=== PATIENT | male | born 1955 | race Caucasian/White ===

== ENCOUNTER 2024-03-31 11:45 | Inpatient (IN) | payer OTHER ==
[2024-03-31] MEDS ORDERED: INSULIN REGULAR (HUMAN) 100 UNIT/ML ONE ×2 (12:41→13:50)
[2024-03-31] MEDS ORDERED: ONDANSETRON 4 MG/2 ML VIAL ONE (12:41)
[2024-03-31] MEDS ORDERED: NA CHLORIDE 0.9% 1,000 ML ONE ×2 (12:42→13:11)
[2024-03-31 12:48] LABS: Absolute Basophils 0.1 K/uL (0-0.5); Absolute Lymphocytes (CBC) 0.3 K/uL (0.7-4.9); Absolute Monocytes 1.4 K/uL (0.1-1.3); Absolute Neutrophil 16.9 K/uL (1.8-8.0); Basophils % 0.3 % (0-1.3); Hematocrit 49.4 % (39.6-49.0); Hemoglobin 14.2 g/dL (13.6-17.9); Lymphocytes % 1.7 % (15.3-44.8); MCH 31.3 pg (27.0-35.0); MCHC 28.7 g/dL (32.0-36.0); MCV 109.2 fL (80-100); MPV 8.6 fL (7.6-11.3); Monocytes % 7.3 % (3.3-12.3); Neutrophils % 90.7 % (41.7-73.7); Platelets 385 thou/uL (152-406); RBC Red Blood Cell Count 4.52 M/uL (4.33-5.43)
[2024-03-31 12:52] LABS: Specific Gravity 1.023 (1.005-1.030); Urine Bilirubin NEGATIVE (Negative); Urine Blood Negative (Negative); Urine Clarity Clear (Clear); Urine Color Colorless (Yellow); Urine Glucose 4+ (Over) (Negative); Urine Ketones 2+ (Negative); Urine Microscopic Reflex YN NO UMIC; Urine Nitrite NEGATIVE (Negative); Urine Protein NEGATIVE (Negative); Urine Urobilinogen Normal (Normal)
[2024-03-31 12:57] LABS: PT Prothrombin Time 12.3 SECONDS (9.4-12.5); PTT, Activated Partial Thromb 24.1 SECONDS (24.3-36.9); Protime INR 1.17
[2024-03-31 13:09] LABS: ALT/SGPT 29 U/L (16-61); Albumin 3.5 g/dL (3.4-5.0); Albumin/Globulin Ratio 0.9 (1.1-1.8); Alkaline Phosphatase 156 U/L (45-117); Anion Gap 36.4 mEq/L (5.0-15.0); BUN Blood Urea Nitrogen 94 mg/dL (7-18); Bilirubin Total 0.6 mg/dL (0.2-1.0); Glomerular Filtration Rate 19 ml/min (=/>90); Glucose Level 1742 mg/dL (74-106); Potassium 7.4 mEq/L (3.5-5.1); Protein, Total 7.5 g/dL (6.4-8.2)
[2024-03-31 13:10] LABS: AST/SGOT < 10 U/L (15-37); Bicarbonate < 8 mEq/L (21-32); Sodium Level 103 mEq/L (136-145)
[2024-03-31] MEDS ORDERED: CEFTRIAXONE 2000 MG/VIAL ONE (13:11)
[2024-03-31] MEDS ORDERED: NA CHLORIDE 0.9% 100 ML ONE (13:12)
[2024-03-31 13:31] LABS: Blood Morphology Comment NOTED (NOT SEEN); Macrocytosis 1+; Platelet Estimate ADEQ; White Blood Cell Scan OK (OK)
[2024-03-31] MEDS ORDERED: Calcium Chloride 10% INJ SYR IV ONE (13:42)
--- NOTE | 2024-03-31 13:51 | ER ---
Nurse's Notes [facility] Name: Lázaro Michelle Age: 68 yrs Sex: Male : 1955 Arrival Date: 03/31/2024 Time: 11:45 Bed 23 Private MD: Diagnosis: Other specified diabetes mellitus with ketoacidosis without coma;Diabetes mellitus due to underlying condition with ketoacidosis without coma;Hypo-osmolality and hyponatremia;Hyperkalemia;Sepsis, unspecified organism Presentation: 03/31 12:24 Chief complaint: Spouse and/or significant other states: patient has been weaning ap3 himself off of meathadone for approx 2 months. patients spouse reports the patient has been "acting off" for a week, but it "has been worse since yesterday". Coronavirus screen: At this time, the client does not indicate any symptoms associated with coronavirus-19. Ebola Screen: No symptoms or risks identified at this time. Initial Sepsis Screen: Does the patient meet any 2 criteria? RR > 20 per min. Altered Mental Status. HR > 90 bpm. Does the patient have a suspected source of infection? No. Patient's initial sepsis screen is negative. Risk Assessment: Do you want to hurt yourself or someone else? Patient reports no desire to harm self or others. Onset of symptoms is unknown. 12:24 Method Of Arrival: Wheelchair ap3 12:24 Acuity: MINAL 2 ap3 Triage Assessment: 12:28 General: Appears distressed, Behavior is restless. Neuro: Level of Consciousness is ap3 confused, Oriented to person, Gait is unsteady. Neuro: Reports weakness. Cardiovascular: Patient's skin is warm and dry. Respiratory: Airway is patent Respiratory pattern is tachypnea. Historical: - Allergies: 12:28 No Known Allergies; ap3 - PMHx: 12:28 High Cholesterol; Hypertension; Diabetes mellitus; Chronic back pain; ap3 - Social history:: Smoking status: Patient denies any tobacco usage or history of. Screenin:15 [facility] ED Fall Risk Assessment (Adult) History of falling in the last 3 months, jb4 including since admission No falls in past 3 months (0 pts) Confusion or Disorientation No (0 pts) Intoxicated or Sedated No (0 pts) Impaired Gait Yes (1 pt) Mobility Assist Device Used Yes (1 pt) Altered Elimination Yes (1 pt) Score/Fall Risk Level 3 or more points = High Risk Oriented to surroundings, Maintained a safe environment. 00:15 Abuse screen: Denies threats or abuse. Nutritional screening: No deficits noted. jb4 Tuberculosis screening: No symptoms or risk factors identified. Assessment: 12:15 General: Appears in no apparent distress. uncomfortable, ill, Behavior is calm, jb4 cooperative, appropriate for age. Pain: Denies pain. Neuro: Level of Consciousness is awake, alert, obeys commands, Oriented to person, place, time, situation. Cardiovascular: Patient's skin is warm and dry. Respiratory: Airway is patent Respiratory effort is even, labored, Respiratory pattern is symmetrical, [place]. Derm: Skin is intact, Skin is dry, Skin is pale, Skin temperature is warm. Musculoskeletal: Circulation, motion, and sensation intact. Range of motion: intact in all extremities. 13:15 Reassessment: Patient appears in no apparent distress at this time. Patient and/or jb4 family updated on plan of care and expected duration. Pain level reassessed. Patient is alert, oriented x 3, equal unlabored respirations, skin warm/dry/pink. 14:15 Reassessment: Patient appears in no apparent distress at this time. Patient and/or jb4 family updated on plan of care and expected duration. Pain level reassessed. Patient is alert, oriented x 3, equal unlabored respirations, skin warm/dry/pink. 15:15 Reassessment: Patient appears in no apparent distress at this time. Patient and/or jb4 family updated on plan of care and expected duration. Pain level reassessed. Patient is alert, oriented x 3, equal unlabored respirations, skin warm/dry/pink. 16:18 Reassessment: Pt resting bed eyes closed, respirations are even and unlabored with no jb4 s/s of pain or distress noted. Vital Signs: 12:24 BP 112 / 55; Pulse 103; Resp 33; Temp 97.4(A); Pulse Ox 100% on R/A; Weight 81.65 kg; ap3 Height 5 ft. 8 in. ; 14:30 BP 124 / 83; Pulse 105; Resp 27; Pulse Ox 97% on R/A; jb4 16:00 BP 119 / 76; Pulse 107; Resp 20; Pulse Ox 100% on 2 lpm NC; jb4 12:24 Body Mass Index 27.37 (81.65 kg, 172.72 cm) ap3 ED Course: 11:48 Patient arrived in ED. mr 12:15 Yaw Mac MD is Attending Physician. bo1 12:28 Triage completed. ap3 12:29 Inserted saline lock: 20 gauge in right antecubital area, using aseptic technique. ap3 Blood collected. Flushed with 10 mL NS. 12:29 Client placed on continuous cardiac and pulse oximetry monitoring. NIBP monitoring ap3 applied. waxing machine operator on. Pulse ox on. NIBP on. 12:48 Blood Culture Adult (2) Sent. jb4 12:48 CBC with Diff Sent. jb4 12:48 CMP Sent. jb4 12:48 Lactate w/ 2H reflex if indic. Sent. jb4 12:48 Protime (+inr) Sent. jb4 12:48 Ptt, Activated Sent. jb4 12:48 Urinalysis w/ reflexes Sent. jb4 13:35 Inserted saline lock: 22 gauge in right wrist, using aseptic technique. jb4 13:40 Inserted saline lock: 18 gauge in left forearm, using aseptic technique. jb4 13:49 Kel Casanova is Hospitalizing Provider. bo1 13:58 Glucose Sent. jb4 14:30 One-on-one care X 120 minutes. jb4 14:54 Sukhdev Rincon, RN is Primary Nurse. jb4 16:23 No provider procedures requiring assistance completed. Patient admitted, IV remains in jb4 place. Administered Medications: 12:47 Drug: Ondansetron IVP 4 mg IVP once; over 2 minutes Route: IVP; Site: right antecubital;jb4 12:48 Drug: NS 0.9% IV 1000 ml IV at 1000 ml once; to be given as a bolus over 60 minutes jb4 Route: IV; Rate: 1000 ml; Site: right antecubital; 12:48 Drug: Insulin Regular Human IVP 10 units IVP once {Co-Signature: [email or web address] (Pily Cordova4 RN).} Route: IVP; Site: right antecubital; 13:20 Drug: NS 0.9% IV 1000 ml IV at 1 bolus Per protocol; to be given as a bolus over 60 jb4 minutes Route: IV; Rate: 1 bolus; Site: right antecubital; 13:20 Drug: Sodium Bicarbonate IVP 1 amp IVP once; (50 mL); equals 50 mEq Route: IVP; Site: jb4 right antecubital; 13:40 Drug: Rocephin IV 2 grams IV at bolus once; Given slow IV push per pharmarcy jb4 instructions Route: IV; Rate: bolus; Site: right wrist; 13:47 Drug: Calcium Chloride IVP 1 grams IVP once Route: IVP; Site: left forearm; jb4 13:58 Drug: Insulin Regular Human IVP 10 units IVP once {Co-Signature: kj2 (Zeinab Cortez RN).} Route: IVP; Site: left forearm; 14:04 Drug: Diazepam IVP 10 mg IVP once {Note: instructed to give 5mg, wait 5 minutes, and jb4 give the last 5 mg..} Route: IVP; Site: left forearm; 15:52 Follow up: Response: No adverse reaction; Marked relief of symptoms; RASS: Drowsy (-1); jb4 Pt became very lethargic after 5mg was administered. Provider notified, instructed to hold the last 5mg of ativan. 14:15 Drug: Insulin Drip - (Insulin Regular Human IVP 100 units, NS 0.9% IV 100 ml) IV at ko1 calculated rate continuous; Standard concentration 1unit/ml; Dose for DKA is 0.1 units/kg/hr {Co-Signature: [email or web address] (Sukhdev Rincon RN).} Route: IV; Rate: calculated rate; Site: right wrist; 15:27 Follow up: Rate change 16.2 units/hr [facility] 15:14 Not Given (incorrect orderr): glucagen1 mg IM once jb4 16:05 Drug: Ativan IVP 2 mg IVP once Route: IVP; Site: right antecubital; jb4 17:49 Follow up: Response: No adverse reaction; Marked relief of symptoms jb4 Point of Care Testing: Blood Glucose: 12:29 Blood Glucose: High (>450 mg/dL); ap3 Ranges: Intake: Outcome: 13:51 Decision to Hospitalize by Provider. bo1 17:57 Admitted to ICU accompanied by nurse, accompanied by tech, via stretcher, room 7, with jb4 oxygen, with chart, Report called to LENIN Stuart 17:57 Condition: stable 17:57 Discharge instructions given to family, Instructed on the need for admit, Demonstrated understanding of instructions, 17:58 Patient left the ED. jb4 Signatures: Robinson Akiko, Reg Reg mr Sukhdev Rincon RN RN jb4 Pily Cordova RN RN ap3 Laura Drew RN RN ko1 Yaw Mac MD MD bo1 Pily Cordova RN3 Zeinab Cortez RN kj2 Sukhdev Rincon RN4 Corrections: (The following items were deleted from the chart) 14:19 14:04 Diazepam IVP 5 mg IVP in left forearm; instructed to give 5mg, wait 5 minutes, jb4 and give the last 5 mg jb4 14:33 14:30 Pulse 105bpm; Resp 27bpm; Pulse Ox 97% RA; jb4 jb4 15:53 14:18 Response: No adverse reaction; Marked relief of symptoms; RASS: Drowsy (-1) jb4 jb4
--- NOTE | 2024-03-31 13:51 | EDPHYS ---
Physician Documentation [facility] Name: Lázaro Michelle Age: 68 yrs Sex: Male : 1955 Arrival Date: 03/31/2024 Time: 11:45 Bed 23 Private MD: ED Physician Yaw Mac HPI: 03/31 13:29 This 68 yrs old Male presents to ER via Wheelchair with complaints of Weakness, Shaking.bo1 13:29 Onset: The symptoms/episode began/occurred gradually, 4 day(s) ago. Associated signs bo1 and symptoms: Pertinent positives: weakness, Muscle cramps etc. Shaking all over. Severity of symptoms: At their worst the symptoms were severe this morning. Recent hx of possible diabetes and repeat lab work and discussion appt due today. Pt has been feeling thirsty and drinking "gallons" of water and milk.. Historical: - Allergies: 12:28 No Known Allergies; ap3 - PMHx: 12:28 High Cholesterol; Hypertension; Diabetes mellitus; Chronic back pain; ap3 - Social history:: Smoking status: Patient denies any tobacco usage or history of. ROS: 13:32 Constitutional: Negative for fever or chills bo1 13:32 Constitutional: Positive for weight loss, Negative for poor PO intake, 13:32 Neck: Negative for pain with movement, stiffness, 13:32 Cardiovascular: Negative for chest pain, 13:32 Respiratory: Negative for cough, shortness of breath, 13:32 Abdomen/GI: Negative for abdominal pain, 13:32 Back: Positive for pain at rest, Hx of chronic back pain, 13:32 : Positive for urinary frequency, Negative for urinary symptoms, 13:32 Skin: Negative for rash, 13:32 Neuro: Positive for speech changes, Per family today, 13:32 Endocrine: Positive for polydipsia, weight loss, 13:32 All other systems are negative, Exam: 13:39 Constitutional: This is an awake, alert, and in moderate acute distress. bo1 13:39 Constitutional: The patient appears alert, awake, in obvious distress, moderately distressed, 13:39 Eyes: Exam is negative for acute changes, 13:39 Cardiovascular: Rate: normal, Rhythm: regular, Pulses: no pulse deficits are appreciated, 13:39 ECG was reviewed by the Attending Physician. 13:41 Neck: External neck: is normal, no acute changes, bo1 13:41 Respiratory: mild respiratory distress is noted, Increased rate - 35 rate, 13:41 Abdomen/GI: Inspection: abdomen appears normal, Scaphoid, 13:41 Back: muscle spasm, is appreciated in the left trapezius and right trapezius, 13:41 Musculoskeletal/extremity: Extremities: all appear grossly normal, with no appreciated pain with palpation, no acute changes, 13:41 Skin: Turgor: is poor, Dry mucous membranes, 13:41 Neuro: Orientation: is normal, Mentation: is normal, seizure activity, is not displayed by the patient, Abnormal movements: Muscles are "cramping" R>L. Vital Signs: 12:24 BP 112 / 55; Pulse 103; Resp 33; Temp 97.4(A); Pulse Ox 100% on R/A; Weight 81.65 kg; ap3 Height 5 ft. 8 in. ; 14:30 BP 124 / 83; Pulse 105; Resp 27; Pulse Ox 97% on R/A; jb4 16:00 BP 119 / 76; Pulse 107; Resp 20; Pulse Ox 100% on 2 lpm NC; jb4 12:24 Body Mass Index 27.37 (81.65 kg, 172.72 cm) ap3 MDM: 12:15 Medical Screening Exam initiated bo1 13:43 Data reviewed: vital signs, lab test result(s), EKG, radiologic studies, plain films, bo1 ABG. Consideration of Admission/Observation Patient was admitted/placed on observation. Management of patient was discussed with the following: Hospitalist: Dr Jocelyne GRIGSBY. I considered the following discharge prescriptions or medication management in the emergency department Medications were administered in the Emergency Department. See MAR. Response to treatment: the patient's symptoms have mildly improved after treatment, BP is improved and condition slowly getting better clinically. ED course: Pt with water intoxication after drinking 5 gallons of water in the past 4 days along with 1 gallon of milk appears to be in DKA with low sodium and elevated potassium needing to be in the ICU on an insulin drip. 03/31 12:25 Order name: Blood Culture Adult (2) banner 03/31 12:25 Order name: CBC with Diff; Complete Time: 13:52 banner 03/31 12: Order name: CMP; Complete Time: 13:14 banner 03/31 12:25 Order name: Lactate w/ 2H reflex if indic.; Complete Time: 13:14 jb4 03/31 12:25 Order name: Protime (+inr); Complete Time: 12:58 jb4 03/31 12:25 Order name: Ptt, Activated; Complete Time: 12:58 jb4 03/31 12:28 Order name: ABG bo1 03/31 12:28 Order name: Urinalysis w/ reflexes; Complete Time: 12:58 [facility] 03/31 12:36 Order name: Glucose, Ancillary Testing; Complete Time: 12:58 EDMS 03/31 12:59 Order name: CBC Smear Scan; Complete Time: 13:52 EDMS 03/31 13:11 Order name: Ghost Lactate-NO COLLECT Timer; Complete Time: 15:51 EDMS 03/31 13:48 Order name: Glucose; Complete Time: 15:51 4 03/31 13:59 Order name: Glucose, Ancillary Testing; Complete Time: 15:51 EDMS 03/31 14:25 Order name: Urinalysis w/ reflexes EDMS 03/31 14:25 Order name: Urine Drug Screen; Complete Time: 17:01 EDMS 03/31 14:25 Order name: Basic Metabolic Panel EDMS 03/31 14:25 Order name: Basic Metabolic Panel EDMS 03/31 14:25 Order name: Basic Metabolic Panel EDMS 03/31 14:25 Order name: Basic Metabolic Panel EDMS 03/31 14:25 Order name: Basic Metabolic Panel EDMS 03/31 14:25 Order name: Basic Metabolic Panel EDMS 03/31 14:25 Order name: Basic Metabolic Panel EDMS 03/31 14:25 Order name: Basic Metabolic Panel EDMS 03/31 14:25 Order name: CBC with Automated Diff EDMS 03/31 14:25 Order name: CBC with Automated Diff EDMS 03/31 14:25 Order name: CBC with Automated Diff EDMS 03/31 14:25 Order name: CBC with Automated Diff EDMS 03/31 14:25 Order name: CBC with Automated Diff EDMS 03/31 14:25 Order name: CBC with Automated Diff EDMS 03/31 14:25 Order name: CBC with Automated Diff EDMS 03/31 14:25 Order name: CBC with Automated Diff EDMS 03/31 14:25 Order name: Magnesium EDMS 03/31 14:25 Order name: Magnesium EDMS 03/31 14:25 Order name: Magnesium EDMS 03/31 14:25 Order name: Magnesium EDMS 03/31 14:25 Order name: Magnesium EDMS 03/31 14:25 Order name: Magnesium EDMS 03/31 14:25 Order name: Magnesium EDMS 03/31 14:25 Order name: Magnesium EDMS 03/31 14:25 Order name: Phosphorus EDMS 03/31 14:25 Order name: Phosphorus EDMS 03/31 14:25 Order name: Phosphorus EDMS 03/31 14:25 Order name: Phosphorus EDMS 03/31 14:25 Order name: Phosphorus EDMS 03/31 14:25 Order name: Phosphorus EDMS 03/31 14:25 Order name: Phosphorus EDMS 03/31 14:25 Order name: Phosphorus EDMS 03/31 15:14 Order name: Glucose jb4 03/31 15:19 Order name: Glucose, Ancillary Testing; Complete Time: 15:51 EDMS 03/31 15:51 Order name: Glucose Level; Complete Time: 15:51 EDMS 03/31 15:54 Order name: Lactate Sepsis 2 HR Follow-up; Complete Time: 17:01 EDMS 03/31 16:48 Order name: Glucose, Ancillary Testing; Complete Time: 17:01 EDMS 03/31 17:07 Order name: Basic Metabolic Panel EDMS 03/31 17:55 Order name: Glucose, Ancillary Testing EDMS 03/31 12:25 Order name: EKG; Complete Time: 12:25 jb4 03/31 12:25 Order name: Accucheck; Complete Time: 12:30 4 03/31 12:25 Order name: Cardiac monitoring; Complete Time: 12:30 03/31 12:25 Order name: EKG - Nurse/Tech; Complete Time: 12:48 03/31 12:25 Order name: IV Saline Lock - Large Bore; Complete Time: 12:30 4 03/31 12:25 Order name: Labs collected and sent; Complete Time: 12:48 03/31 12:25 Order name: O2 Per Protocol; Complete Time: 12:30 jb4 03/31 12:25 Order name: O2 Sat Monitoring; Complete Time: 12:30 03/31 12:25 Order name: Vital Signs; Complete Time: 12:30 jb4 EC:39 Rate is 100 beats/min. Rhythm is regular. QRS [place] is Normal. MN interval is normal. bo1 QRS interval is normal. QT interval is normal. No Q waves. T waves are Normal. T waves are Peaked. No ST changes noted. Clinical impression: Normal ECG and T-waves are slightly peaked. Interpreted by me. Reviewed by me. Administered Medications: 12:47 Drug: Ondansetron IVP 4 mg IVP once; over 2 minutes Route: IVP; Site: right antecubital;jb4 12:48 Drug: NS 0.9% IV 1000 ml IV at 1000 ml once; to be given as a bolus over 60 minutes jb4 Route: IV; Rate: 1000 ml; Site: right antecubital; 12:48 Drug: Insulin Regular Human IVP 10 units IVP once {Co-Signature: ap3 (Pily Cordova jb4 RN).} Route: IVP; Site: right antecubital; 13:20 Drug: NS 0.9% IV 1000 ml IV at 1 bolus Per protocol; to be given as a bolus over 60 jb4 minutes Route: IV; Rate: 1 bolus; Site: right antecubital; 13:20 Drug: Sodium Bicarbonate IVP 1 amp IVP once; (50 mL); equals 50 mEq Route: IVP; Site: jb4 right antecubital; 13:40 Drug: Rocephin IV 2 grams IV at bolus once; Given slow IV push per pharmarcy jb4 instructions Route: IV; Rate: bolus; Site: right wrist; 13:47 Drug: Calcium Chloride IVP 1 grams IVP once Route: IVP; Site: left forearm; jb4 13:58 Drug: Insulin Regular Human IVP 10 units IVP once {Co-Signature: kj2 (Zeinab Cortez jb4 RN).} Route: IVP; Site: left forearm; 14:04 Drug: Diazepam IVP 10 mg IVP once {Note: instructed to give 5mg, wait 5 minutes, and jb4 give the last 5 mg..} Route: IVP; Site: left forearm; 15:52 Follow up: Response: No adverse reaction; Marked relief of symptoms; RASS: Drowsy (-1); jb4 Pt became very lethargic after 5mg was administered. Provider notified, instructed to hold the last 5mg of ativan. 14:15 Drug: Insulin Drip - (Insulin Regular Human IVP 100 units, NS 0.9% IV 100 ml) IV at ko1 calculated rate continuous; Standard concentration 1unit/ml; Dose for DKA is 0.1 units/kg/hr {Co-Signature: [email or web address] (Sukhdev Rincon RN).} Route: IV; Rate: calculated rate; Site: right wrist; 15:27 Follow up: Rate change 16.2 units/hr jb4 15:14 Not Given (incorrect orderr): glucagen1 mg IM once jb4 16:05 Drug: Ativan IVP 2 mg IVP once Route: IVP; Site: right antecubital; jb4 17:49 Follow up: Response: No adverse reaction; Marked relief of symptoms jb4 Point of Care Testing: Blood Glucose: 12:29 Blood Glucose: High (>450 mg/dL); ap3 Ranges: Critical Glucose Levels:Adult <50 mg/dl or >400 mg/dl <40 mg/dl or >180 mg/dl Disposition Summary: 03/31/24 13:51 Hospitalization Ordered Notes: Hospitalization Status: Inpatient Admission bo1 Provider: Kel Casanova Location: Intensive Care Unit bo1 Condition: Serious bo1 Problem: new bo1 Symptoms: are unchanged bo1 Bed/Room Type: [place] [address] Room Assignment: 7-(03/31/24 16:08) eb Diagnosis - Other specified diabetes mellitus with ketoacidosis without coma bo1 - 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 Total time: 160 minutes Signatures: Dispatcher [employer] Sukhdev Hutton RN LENIN jb4 Pily Cordova RN RN ap3 Katja Ratliff Kathy, RN RN ko1 Yaw Mac MD MD bo1 Pily Cordova RN3 Zeinab Cortez RN kj2 Sukhdev Rincon RN jb4 Corrections: (The following items were deleted from the chart) 12: 12:25 BLOOD CULTURE*+BA.LAB.BRZ ordered. EDMS EDMS 12: 12:25 CBC+H.LAB.BRZ ordered. EDMS EDMS 12: 12:25 COMPREHENSIVE METABOLIC PANEL+C.LAB.BRZ ordered. EDMS EDMS 12: 12:25 LACTATE+C.LAB.BRZ ordered. EDMS EDMS 12: 12:25 PROTIME (+INR)+COAG.LAB.BRZ ordered. EDMS EDMS 12: 12:25 PTT, ACTIVATED+COAG.LAB.BRZ ordered. EDMS EDMS 12: 12:29 Urinalysis+U.LAB.BRZ ordered. EDMS EDMS 16:08 13:51 bo1 eb
[2024-03-31] MEDS ORDERED: INSULIN REGULAR, HUMAN 100 UNIT in NA CHLORIDE 0.9% 100 ML IV SCH (14:00)
[2024-03-31] MEDS ORDERED: DIAZEPAM 10 MG/2 ML INJ SYRINGE ONE (14:01)
--- NOTE | 2024-03-31 14:51 | P.HP ---
Certification for Inpatient Patient admitted to: Inpatient With expected LOS: >2 Midnights Patient will require the following post-hospital care: None Practitioner: I am a practitioner with admitting privileges, knowledge of patient current condition, hospital course, and medical plan of care. Services: Services provided to patient in accordance with Admission requirements found in Title 42 Section 412.3 of the Code of Federal Regulations Patient History Date of Service: 03/31/24 Reason for admission: Severe DKA History of Present Illness: Lázaro Michelle is a 68 year old male with Pmhx HTN, HLD presents to the ED with chief complaint of weakness, nausea, and shaking. Family reports he saw the doctor on 03/23 for evaluation of elevated glucose but was unable to follow-up on Friday 03/24 due to the weather. Reportedly he had worsening thirst, urination, weakness, nausea, and shaking. Family decided to bring him to the ED today. Laboratory evaluation significant for WBC 18.7, sodium 103, potassium 7.4, chloride 67, bicarb less than 8, anion gap 36.4, BUN 94, creatinine 3.31, GFR 19, serum glucose 1742, lactic acid 7. While in the ED, he was given 2 LNS bolus, calcium gluconate, Rocephin, Valium, Ativan, and sodium bicarb. Lázaro will be admitted to hospitalist service for further evaluation and treatment of severe DKA. Allergies No Known Allergies Allergy (Verified 05/31/15 11:08) Home Medications: Hydrochlorothiazide 1 tab PO DAILY 05/31/15 Lisinopril [Prinivil*] 1 tab PO DAILY 05/31/15 Metoclopramide HCl [Reglan] 1 tab PO QID 05/31/15 Simvastatin 1 tab PO DAILY 05/31/15 Tramadol HCl 1 tab PO TID PRN 05/31/15 levoFLOXacin [Levaquin] 500 mg PO DAILY #14 tab 06/03/15 metroNIDAZOLE [Flagyl*] 500 mg PO Q8H #42 tablet 06/03/15 - Past Medical/Surgical History Diabetic: No -: hypertension, high cholesterol -: HAND SURGERY, APPENDECTOMY - Social History Smoking Status: Never smoker Alcohol use: No CD- Drugs: No Caffeine use: No Review of Systems Other: per HPI Physical Examination - Physical Exam General: Other (Sleeping s/p valium) HEENT: Atraumatic, Normocephalic, PERRLA Neck: Supple, 2+ carotid pulse no bruit Respiratory: Clear to auscultation bilaterally, Normal air movement Cardiovascular: Normal pulses, Regular rate/rhythm, Normal S1 S2 Capillary refill: <2 Seconds Gastrointestinal: Soft and benign, Non-distended Musculoskeletal: Other (Right arm spasms) Integumentary: No rashes Neurological: Other (Right arm spasms) - Studies Laboratory Data (last 24 hrs) 03/31/24 03/31/24 03/31/24 14:00 13:55 12:30 WBC Hgb Hct Plt Count PT 12.3 INR 1.17 APTT 24.1 L Sodium Cancelled Potassium Cancelled BUN Cancelled Creatinine Cancelled Glucose Cancelled 1514 H* Total Bilirubin AST ALT Alkaline Phosphatase 03/31/24 03/31/24 12:30 12:30 WBC 18.70 H Hgb 14.2 Hct 49.4 H Plt Count 385 PT INR APTT Sodium 103 L* Potassium 7.4 H* BUN 94 H Creatinine 3.31 H Glucose 1742 H* Total Bilirubin 0.6 AST < 10 L ALT 29 Alkaline Phosphatase 156 H Assessment and Plan - Plan Assessment and Plan Sepsis of unspecified organism Diabetes mellitus with severe DKA Severe dehydration 2/2 acidosis psuedohyponatremia 2/2 dehydration Hyperkalemia 2/2 acidosis Right arm spasm -admit to ICU -WBC 18.7, sodium 103, potassium 7.4, chloride 67, bicarb < 8, anion gap 36.4, , serum glucose 1742, LA 7 -agressive IVF, 2L given in the ED, NS per nephrology -Desmopressin -insulin gtt, Q1H glucose checks -BMP Q4H -Consult Nephrology and Neurology BOBBY with Uremia -BUN/creatinine 94/3.31, GFR 19 -IVF as above HTN -continue home medications when appropriate DVT ppx Full code LOS 3-4 days Discharge Plan: Home Plan to discharge in: 72 Hours - Advance Directives Does patient have a Living Will: No Does patient have a Durable POA for Healthcare: No
[2024-03-31] MEDS: SOD POLYSTYREN SUL 15 GM/60 ML UCUP PO ONE (15:30)
[2024-03-31] MEDS: NACHLORIDE 0.45% 1,000 ML with NA BICARB 8.4% 100 MEQ IV SCH (15:30)
[2024-03-31] MEDS ORDERED: LORazepam 2 MG/ML VIAL ONE (15:56)
[2024-03-31 16:29] LABS: Barbiturates NEGATIVE (NEGATIVE); Benzodiazepines NEGATIVE (NEGATIVE); Cocaine NEGATIVE (NEGATIVE); METHAMPHETAM NEGATIVE (NEGATIVE); Methadone POSITIVE (NEGATIVE); Opiates NEGATIVE (NEGATIVE); Phencyclidine NEGATIVE (NEGATIVE); THC Cannibis NEGATIVE (NEGATIVE)
[2024-03-31] MEDS ORDERED: LORazepam 2 MG/ML VIAL IV PRN (16:47)
[2024-03-31 17:05] LABS: Anion Gap 20.5 mEq/L (5.0-15.0); Potassium 5.5 mEq/L (3.5-5.1)
[2024-03-31] MEDS: Ringers Lactate 1,000 ML IV SCH (17:34)
[2024-03-31 17:49] LABS: Arterial Blood Carboxyhemoglob 0.4 % (0-1.5); Blood Gas Oxyhemoglobin 93.9 % (94-97); Blood Gas THB 14.2 g/dl (12-18); Blood O2 Saturation 96.2 % (92-98.5)
[2024-03-31] MEDS: INSULIN REGULAR, HUMAN 100 UNIT in NA CHLORIDE 0.9% 100 ML IV SCH (18:18)
--- NOTE | 2024-03-31 18:34 | P.CNS ---
Date of Consult: 03/31/24 Reason for Consult: Hyponatremia, hyperkalemia, BOBBY Requesting Physician: Joanne Daley Chief Complaint: Severe DKA History of Present Illness: Pls note history obtained through chart review and information provide by pt's as he is currently obtunded. Pt has a hx HTN on several agents, NIDDM on Metformin monotherapy with A1c rising from 7.6-9.4% in the past to 11% on the latest, chronic pain on Methadone and Tramadol under the care of Dr. Ivory who was in his USOH until yesterday and even this AM reports pt was mostly alert and conversive. Pt brought in by family due to weakness, some involuntary jerking of UE and head reported and for which it appears pt received Ativan and Valium in the ER. Pt was found to be severely hyperglycemia, acidotic and with renal failure, hyponatremia and hyperkalemia for which renal service has been consulted. He is seen in the ICU currently on IVF and insulin drip. He has produced > 600 cc since admission to the unit. Allergies No Known Allergies Allergy (Verified 05/31/15 11:08) Home Medications: Hydrochlorothiazide 1 tab PO DAILY 05/31/15 Lisinopril [Prinivil*] 1 tab PO DAILY 05/31/15 Metoclopramide HCl [Reglan] 1 tab PO QID 05/31/15 Simvastatin 1 tab PO DAILY 05/31/15 Tramadol HCl 1 tab PO TID PRN 05/31/15 levoFLOXacin [Levaquin] 500 mg PO DAILY #14 tab 06/03/15 metroNIDAZOLE [Flagyl*] 500 mg PO Q8H #42 tablet 06/03/15 - Past Medical/Surgical History Diabetic: No -: hypertension, high cholesterol -: HAND SURGERY, APPENDECTOMY - Social History Smoking Status: Unknown if ever smoked Alcohol use: No CD- Drugs: No Caffeine use: No Review of Systems is unable to be obtained Physical Examination Temp Pulse Resp BP Pulse Ox 98.6 F 111 H 18 105/77 96 03/31/24 17:30 03/31/24 17:30 03/31/24 17:30 03/31/24 17:30 03/31/24 17:30 General: Other (Obtunded, NAD) HEENT: Atraumatic, Normocephalic Neck: Other (no dystonic movements noted) Respiratory: Clear to auscultation bilaterally, Normal air movement Cardiovascular: No edema, Other (tachy, regular) Gastrointestinal: Soft and benign, Non-distended, No tenderness Musculoskeletal: No swelling, No contractures, No warmth Integumentary: No rashes Neurological: Other (Obtunded, sleeping, does not open eyes to physical stimuli, no tremors or myoclonus noted) Laboratory Data (last 24 hrs) 03/31/24 03/31/24 03/31/24 14:00 13:55 12:30 WBC Hgb Hct Plt Count PT 12.3 INR 1.17 APTT 24.1 L Sodium Cancelled Potassium Cancelled BUN Cancelled Creatinine Cancelled Glucose Cancelled 1514 H* Total Bilirubin AST ALT Alkaline Phosphatase 03/31/24 03/31/24 12:30 12:30 WBC 18.70 H Hgb 14.2 Hct 49.4 H Plt Count 385 PT INR APTT Sodium 103 L* Potassium 7.4 H* BUN 94 H Creatinine 3.31 H Glucose 1742 H* Total Bilirubin 0.6 AST < 10 L ALT 29 Alkaline Phosphatase 156 H Conclusions/Impression: A/P) 1. Stage II BOBBY in the setting of pre-renal azotemia, vol depletion, relative hypotension, concurrent ACEi/diuretic use. Non oliguric, Cr level lower on repeat testing post initial volume admin but will need to cont to monitor closely. 2. Hold all offending meds, anti hypertensives/ACEi, Metformin, other 3. Acute hypotonic (if initial labs are to be believed) hyponatremia in the setting of hyperglycemia, hypovolemia, other although repeat labs with sig higher serum osm in the setting of higher Na levels and with elevated BUN/glucose. Pt at risk for ODS with rapid rise in Na levels with vol repletion given his initial vol contracted/depleted state. Will need to switch to hypotonic IVF, will switch to 1/2 NS, will administer Desmopressin 2 mcg IV once to prevent rapid suppression of osmotically triggered ADH and Na correction. Will check Na levels q2-4h. 4. Hyperkalemia in the setting of BOBBY, DKA, acidosis -K level should cont to improve with intra cellular shifting with insulin, do not dose any further cation exchangers 5. Monitor hourly UOP closely via external or indwelling catheter 6. Metab acidosis with AG -trend AG and bicarb deficit closely, avoid any bicarb pushes given risk for rebound alkalosis. 7. AMS, multifactorial. Possibly myoclonic jerks or partial seizures on presentation. In the setting of above, but with pt's chronic opiate intake with metab that are excreted in urine and with his presentation and current obtunded state, recommend Neuro eval. Dr. De La Cruz is hand stone polisher for the group after hours today and this weekend. Pls call us directly for any significant shifts in Na levels. Rest of DKA and ICU management per IM team Alonso Rendon MD, GARY
[2024-03-31] MEDS: NACHLORIDE 0.45% 1,000 ML IV SCH ×3 (18:41→21:15)
[2024-03-31] MEDS: DESMOPRESSIN 4 MCG/ML AMP IV ONE (18:46)
[2024-03-31 20:39] LABS: Anion Gap 15.8 mEq/L (5.0-15.0); Potassium 4.8 mEq/L (3.5-5.1)
[2024-03-31] MEDS: D5 0.45 NS 1,000 ML IV SCH (22:34)
[2024-03-31 23:39] LABS: Anion Gap 17.1 mEq/L (5.0-15.0); Potassium 5.1 mEq/L (3.5-5.1)
[2024-04-01 01:41] LABS: Arterial Blood Carboxyhemoglob 0.6 % (0-1.5); Blood Gas Oxyhemoglobin 95.7 % (94-97)
[2024-04-01 01:42] LABS: Blood Gas THB 15.5 g/dl (12-18)
--- NOTE | 2024-04-01 02:01 | P.PN ---
Date of Service: 04/01/24 I was called to see the patient is altered mental status is not responding CT scan of the head has been performed report is awaiting patient had rapid correction of hyponatremia seen by nephrology desmopressin given started on quarter normal saline serial sodiums have been ordered currently patient is unresponsive vital signs are stable arterial blood gases satisfactory patient is acidosis appears to have been corrected he did receive lorazepam and diazepam today his renal function is improving
--- NOTE | 2024-04-01 03:37 | RAD REPORT ---
EXAM: CT Head Without Intravenous Contrast CLINICAL HISTORY: The patient is 68 years old and is Male; AMS TECHNIQUE: Axial computed tomography images of the head/brain without intravenous contrast. Sagit juju and coronal reformatted images were created and reviewed. This CT exam was performed using one or more of the following dose reduction techniques: automated exposure control, adjustment of t he mA and/or kV according to patient size, and/or use of iterative reconstruction technique. COMPARISON: No relevant prior studies available. FINDINGS: Brain: Mild nonspecific white matter changes likely related to chronic microvascular ischemic dis ease. No hemorrhage. Ventricles: Unremarkable. No ventriculomegaly. Bones/joints: Unremarkable. No acute fracture. Soft tissues: Unremarkable. Sinuses: Unremarkable as visualized. Mastoid air cells: Unremarkable as visualized. No mastoid effusion. IMPRESSION: No acute intracranial abnormality. Electronically signed by: Tj Bertrand MD 04/01/2024 03:32 AM [facility] 8 Due to temporary technical issues with the [employer] reporting system, reports are being jose miguel d by the in-house radiologist without review as a courtesy to ensure prompt reporting the interpreting radiologist is fully responsible for the content of the report. Transcribed Date/Time: 04/01/2024 3:37 AM
[2024-04-01 04:24] LABS: Absolute Lymphocytes (CBC) 0.7 K/uL (0.7-4.9); Absolute Monocytes 1.5 K/uL (0.1-1.3); Absolute Neutrophil 23.3 K/uL (1.8-8.0); Basophils % 0.2 % (0-1.3); Hematocrit 43.4 % (39.6-49.0); Hemoglobin 14.7 g/dL (13.6-17.9); Lymphocytes % 2.9 % (15.3-44.8); MCH 30.5 pg (27.0-35.0); MCHC 33.9 g/dL (32.0-36.0); MCV 90.1 fL (80-100); MPV 7.8 fL (7.6-11.3); Monocytes % 5.8 % (3.3-12.3); Neutrophils % 91.1 % (41.7-73.7); Platelets 338 thou/uL (152-406); RBC Red Blood Cell Count 4.82 M/uL (4.33-5.43); Red Cell Distribution Width 12.8 % (12.1-15.2)
[2024-04-01 04:39] LABS: Anion Gap 14.6 mEq/L (5.0-15.0); Magnesium 2.1 mg/dL (1.6-2.4); Phosphorus 3.3 mg/dL (2.5-4.9); Potassium 4.6 mEq/L (3.5-5.1)
[2024-04-01 05:05] LABS: Band Neutrophils 14 % (0-1); Differential Total Cells Count 100; Lymphocytes 1 % (15-42); Monocytes 7 % (0-10); Segmented Neutrophils 78 % (40-80)
[2024-04-01 05:07] LABS: Blood Morphology Comment NOT SEEN (NOT SEEN); Platelet Estimate ADEQ
[2024-04-01] MEDS ORDERED: VANCOMYCIN 1 GM in NA CHLORIDE 0.9% 250 ML IVPB SCH (07:00)
[2024-04-01] MEDS: VANCOMYCIN 1.25 GM in NA CHLORIDE 0.9% 250 ML IVPB SCH (07:55)
[2024-04-01 08:00] LABS: Anion Gap 13.8 mEq/L (5.0-15.0); Potassium 4.8 mEq/L (3.5-5.1)
--- NOTE | 2024-04-01 14:46 | PN ---
Date of Progress Note: 04/01/2024 Subjective: Patient was seen and examined in the ICU. He seems to be waking up somewhat and seems t o be opening his eyes spontaneously and responding to his . He is able to talk, but noncoherent. Physical Examination: Vital Signs: At this time are showing temperature 97.4, pulse rate of 116, respiratory rate of 21, a nd blood pressure 171/106. General: He appears mildly agitated. HEENT: Atraumatic head. Lungs: Clear to auscultation. Abdomen: Soft and nontender. Extremities: No evidence of edema. Abdomen: Soft and nontender. No organomegaly was noted. Laboratory Data: From this morning is showing sodium improving to 135, potassium of 4.8, chloride of 105, bicarb of 21, BUN of 77, and creatinine of 1.68, which is significantly improved from 3.3 at th e time of admission. CBC showing a WBC count of 25,000, hemoglobin of 14.7, hematocrit of 43.4, and platelet count of 338. Current Medications: Include cefepime 2 g every 12 hours, desmopressin 1 time dose was given yesterd ay. He is getting Novolin regular insulin drip. He is on D5 half NS at 100 cc an hour and vancomyci n every 36 hours. Impression: 1.Acute renal failure secondary to acute tubular necrosis from ongoing dehydration from diabetic ket oacidosis. 2.Severe hyponatremia secondary to severe volume depletion from ongoing diabetic ketoacidosis. The patient's sodium had initially corrected rapidly, but since then it has been staying relatively stabl e. At this time, I will continue with the half-normal saline and monitor his sodium levels closely a nd follow up. Mental status dash, he seems to be improving. Most likely, his altered mental status was related to metabolic encephalopathy from getting excessive sedation. We will continue to monitor his mental status closely. 3.Hyperosmotic nonketotic state from uncontrolled diabetes. The patient is currently on insulin per protocol. Continue to watch, monitor his blood sugars, and follow up on the protocol. 4.Leukocytosis. The patient remains on broad-spectrum antibiotics, at this time. Blood cultures ar e currently pending. Continue to follow up closely. VV/MODL Voice ID: [id number] Report ID: [id number]
[2024-04-01 15:13] LABS: Anion Gap 8.4 mEq/L (5.0-15.0); Potassium 4.4 mEq/L (3.5-5.1)
[2024-04-01] MEDS ORDERED: LISINOPRIL 40 MG PO SCH (15:29)
--- NOTE | 2024-04-01 16:39 | P.PN ---
Date of Service: 04/01/24 Subjective Sleeping this a.m. WBC increased to 25 ABG improved overnight Sodium improved with careful IV fluid changes overnight Kidney function improving creatinine 1.68 Serum glucose improved to 213 Anion gap closed at 3 AM Lactic acid cleared arm spasms resolved OVN: nurse reports patient in obtunded state s/p valium and ativan given in the ED several hours prior to moving to ICU, CT head reports no acute intracranial abnormality. ROS 10 point ROS as noted above, otherwise negative Physical Exam General: Sleeping, awakens easily, no acute distress HEENT: Atraumatic, Normocephalic, PERRLA Neck: Supple, 2+ carotid pulse no bruit Respiratory: Clear to auscultation bilaterally, Normal air movement Cardiovascular: Normal pulses, mild tachycardia, Normal S1 S2 Capillary refill: <2 Seconds Gastrointestinal: Soft and benign, Non-distended Musculoskeletal: Other (Right arm spasms) Integumentary: No rashes Neurological: Other (Right arm spasms) Vitals Reviewed Problem list Sepsis of unspecified organism Diabetes mellitus with severe DKA Severe dehydration 2/2 acidosis psuedohyponatremia 2/2 dehydration Hyperkalemia 2/2 acidosis Right arm spasm BOBBY with Uremia HTN Assessment and Plan Sepsis of unspecified organism Diabetes mellitus with severe DKA Severe dehydration 2/2 acidosis psuedohyponatremia 2/2 dehydration Hyperkalemia 2/2 acidosis Right arm spasm -admit to ICU -Initial labs WBC 18.7, sodium 103, potassium 7.4, chloride 67, bicarb < 8, anion gap 36.4, , serum glucose 1742, LA 7 -Sodium 135, potassium 4.8, serum glucose 213, WBC 25, lactic acid 1 serum glucose 213 -agressive IVF, 2L given in the ED, NS per nephrology -White blood cells increased to 25 -Started vancomycin/cefepime (04/01) -Initial ABG-(pH 7.13, pCO2 70.5, pO2 125, HCO3 5.5) repeat ABG-(pH 7.33, pCO2 43.2, pO2 139, HCO3 22.3) -Desmopressin per nephrology -insulin gtt, Q1H glucose checks -BMP Q4H -Consult Nephrology and Neurology -Blood cultures no growth to date -Will start CLD BOBBY with Uremia -BUN/creatinine 77/1.68, GFR 44 -IVF as above HTN -continue home medications when appropriate DVT ppx Full code LOS 3-4 days Discharge Plan: Home Plan to discharge in: 72 Hours <Joanne Daley - Last Filed: 04/01/24 16:44> Patient seen and examined with Ms. Daley. Patient is less responsive, however mental status has improved compared to yesterday. Continue DKA protocol with insulin drip. Nephrology is assisting with fluid management to prevent further serum sodium overcorrection. Neurochecks. He has leukocytosis. Continue empiric cefepime and vancomycin. Follow blood cultures. <gary jin - Last Filed: 04/02/24 19:43>
[2024-04-01] MEDS: CEFEPIME 2 GM in NA CHLORIDE 0.9% 100 ML IV SCH (19:39)
[2024-04-01] MEDS: D5 0.9 NS 1,000 ML IV SCH (19:39)
[2024-04-01] MEDS: HYDRALAZINE HCL 20 MG/ML VIAL IV PRN (20:36)
[2024-04-01] MEDS: ACETAMINOPHEN 325 MG TABLET PO PRN (21:00)
[2024-04-01 21:38] VITALS: O2SAT 97
[2024-04-01 22:50] LABS: Anion Gap 12.9 mEq/L (5.0-15.0)
[2024-04-01 23:04] LABS: Potassium 4.9 mEq/L (3.5-5.1)
[2024-04-01] MEDS: MORPHINE 2 MG/ML SYR IV PRN (23:05)
[2024-04-02] MEDS: LABETALOL 20 MG/4ML SYRINGE IV PRN (00:05)
[2024-04-02 01:51] LABS: Specific Gravity 1.025 (1.005-1.030); Sqamous Epithelial <5 /HPF (None Seen); Urine Bacteria None Seen /HPF (<20); Urine Bilirubin NEGATIVE (Negative); Urine Blood 1+ (Negative); Urine Clarity Extremely Turbid (Clear); Urine Color Light-Yellow (Yellow); Urine Crystals Unidentified Many /HPF (None Seen); Urine Culture Reflex Order NOT NEEDED; Urine Glucose 4+ (Over) (Negative); Urine Ketones 2+ (Negative); Urine Microscopic Reflex YN ORDER UMIC; Urine Mucus Slight /HPF (None Seen); Urine Nitrite NEGATIVE (Negative); Urine Protein TRACE (Negative); Urine Urobilinogen Normal (Normal); Urine WBC None Seen /HPF (<5); Urine pH 5.5 (5.0-7.0)
[2024-04-02] MEDS: MORPHINE 2 MG/ML SYR IV ONE (02:16)
--- NOTE | 2024-04-02 05:39 | P.PN ---
Date of Service: 04/02/24 Patient with repeated groaning and moaning, received multiple doses of morphine. Given prior lactic acidemia and unexplained abdominal pain, will obtain CT of the abdomen to rule out perforation or bowel ischemia
[2024-04-02 05:50] LABS: Absolute Lymphocytes (CBC) 0.5 K/uL (0.7-4.9); Absolute Neutrophil 21.8 K/uL (1.8-8.0); Basophils % 0.2 % (0-1.3); Hematocrit 42.4 % (39.6-49.0); Hemoglobin 14.6 g/dL (13.6-17.9); MCH 31.4 pg (27.0-35.0); MCHC 34.3 g/dL (32.0-36.0); MCV 91.6 fL (80-100); MPV 8.1 fL (7.6-11.3); Monocytes % 4.2 % (3.3-12.3); Neutrophils % 93.6 % (41.7-73.7); Platelets 244 thou/uL (152-406); RBC Red Blood Cell Count 4.64 M/uL (4.33-5.43); Red Cell Distribution Width 13.3 % (12.1-15.2)
[2024-04-02 06:12] LABS: Anion Gap 11.9 mEq/L (5.0-15.0); Magnesium 2.2 mg/dL (1.6-2.4); Potassium 3.9 mEq/L (3.5-5.1)
--- NOTE | 2024-04-02 07:01 | RAD REPORT ---
EXAMINATION: CT ABDOMEN AND PELVIS WITHOUT CONTRAST CLINICAL INDICATION: Male, 68 years old.unexplained abdominal pain , r/o perforation TECHNIQUE: CT abdomen and pelvis was performed, without IV contrast, as per department protocol. Axia l, sagittal and coronal reconstructions were obtained. One or more of the following dose reduction techniques were used: Automated exposure control, adjustment of the mA and/or kV according to the pat ient size, and/or iterative reconstruction. Unless otherwise specified, incidental findings do not require dedicated imaging follow-up. [id number]. IV CONTRAST: Not administered. COMPARISON: 05/31/2015 FINDINGS: The lack of intravenous contrast limits the sensitivity of this exam for evaluation of solid visceral organs, vascular structures, and retroperitoneum. LOWER CHEST: Dependent atelectasis. No significant pericardial effusion. UPPER GI: No significant abnormality. LIVER: Hepatic steatosis, but otherwise unremarkable. GALLBLADDER/BILE DUCTS: No biliary ductal dilatation.? PANCREAS: Severe pancreatic atrophy/fatty infiltration. Mild peripancreatic stranding is noted. No du ctal dilatation is identified. A couple of calcifications are present at the pancreatic head which could reflect sequela of chronic pancreatitis.. SPLEEN: Unremarkable. ADRENALS: No adrenal masses. KIDNEYS AND URETERS: No hydronephrosis.Within the limitations of a noncontrast CT, no suspicious radha l lesions.4 mm stone in lower pole left kidney. ABDOMINAL AORTA AND OTHER VESSELS: Mild atherosclerotic changes. PERITONEUM: Trace fluid in the right lower quadrant. LYMPH NODES: No pathologic lymphadenopathy. ABDOMINAL WALL: Unremarkable SMALL BOWEL/COLON: Trace fluid in the right lower quadrant. Nonspecific thickening at the terminal il eum and cecum. Question irregular thickening at the proximal ascending colon.Nonvisualized appendix. URINARY BLADDER: Distended. REPRODUCTIVE ORGANS: Prostatomegaly. MUSCULOSKELETAL: Multilevel degenerative changes in the spine. No acute fracture. ADDITIONAL FINDINGS: None. IMPRESSION: 1. Question acute on chronic pancreatitis. Recommend correlation with lipase. No complicating feature s. The pancreas is severely atrophic/fatty replaced. 2. Mild circumferential wall thickening at the terminal ileum and cecum without significant inflammat ory changes. There is a short segment of mild irregular wall thickening and stranding at the ascending colon which could reflect a short segment of colitis however follow-up colonoscopy is recom mended to exclude neoplasm. No perforation or bowel obstruction identified.
--- NOTE | 2024-04-02 07:11 | P.PN ---
Date of Service: 04/02/24 Subjective Family reports good conversation this morning on rounds, he is more comfortable and sleeping CT abd/pelvis reveals pancreatitis, family reports this is chronic lipase 426, triglycerides 86, serum glucose 234 acidosis resolved and stopped insulin gtt ROS 10 point ROS as noted above, otherwise negative Physical Exam General: Conversing, lethargic, NAD HEENT: Atraumatic, Normocephalic, PERRLA Neck: Supple, 2+ carotid pulse no bruit Respiratory: Clear BBS, nonlabored breathing on RA Cardiovascular: Normal pulses, mild tachycardia, Normal S1 S2 Capillary refill: <2 Seconds Gastrointestinal: Soft on palpation, Non-distended Musculoskeletal: Integumentary: No rashes Neurological: lethargic Vitals Reviewed Problem list Severe Sepsis of unspecified organism Diabetes mellitus with severe DKA Severe dehydration 2/2 acidosis Severe hyponatremia secondary to severe volume depletion from ongoing diabetic ketoacidosis Hyperkalemia 2/2 acidosis Right arm spasm-resolved BOBBY with Uremia HTN Assessment and Plan Severe Sepsis 2/2 pancreatitis Diabetes mellitus with severe DKA Severe dehydration 2/2 acidosis Severe hyponatremia secondary to severe volume depletion from ongoing diabetic ketoacidosis Hyperkalemia 2/2 acidosis Right arm spasm- resolved -Sepsis criteria WBC 18.7, LA 7.8, HR 103, Resp 33 -admit to ICU -Initial labs WBC 18.7, sodium 103, potassium 7.4, chloride 67, bicarb < 8, anion gap 36.4, serum glucose 1742, LA 7 -Sodium 135, potassium 3.9, serum glucose 234, WBC 23.0, lactic acid 1 -agressive IVF, 2L given in the ED, NS per nephrology -Started vancomycin/cefepime (started 04/01) -Initial ABG-(pH 7.13, pCO2 70.5, pO2 125, HCO3 5.5) repeat ABG-(pH 7.33, pCO2 43.2, pO2 139, HCO3 22.3) -Desmopressin per nephrology -stopped insulin gtt, SSI now, Q1H glucose checks -BMP Q4H -Consult Nephrology -Neurology- reports, cannot rule out seizure without an EEG, will follow up outpatient as muscle spasms have resolved -Blood cultures no growth to date -CLD -CT abd/pelvis reports questionable acute on chronic pancreatitis, pancreas is severely atrophic/fatty replaced." -Lipase 426, trend daily Acute kidney failure secondary to acute tubular process -BUN/creatinine 29/1.04, GFR 78- much improved -IVF as above HTN -continue home medications when appropriate Methadone use, chronic back pain -Prescribed methadone -family reports self medicated after he attempted to wean, family is not sure how much he has been taking DVT ppx lovenox Full code LOS 3-4 days Discharge Plan: Home Plan to discharge in: 72 Hours <Joanne Daley - Last Filed: 04/02/24 14:37> Patient seen and examined with Ms. Daley. Plan of care discussed. Hyponatremia improved Mental status improved. Patient is interactive. DKA resolved, patient transitioned to subcutaneous insulin. Nephrology input appreciated. Patient was given desmopressin per nephrology. Patient has chronic pain syndrome managed with methadone. Methadone resumed [place] as needed for breakthrough pain. <gary jin - Last Filed: 04/02/24 19:38>
[2024-04-02] MEDS: ENOXAPARIN 40 MG/0.4 ML SQ SCH (07:40)
[2024-04-02] MEDS ORDERED: METHADONE HCL 5 MG PO SCH (08:30)
[2024-04-02] MEDS ORDERED: GLUCAGON 1 MG/VIAL IM PRN (08:52)
[2024-04-02] MEDS ORDERED: D10W 125 ML IV PRN (08:52)
[2024-04-02] MEDS ORDERED: HOME MED 1 EA UNK (Hydrochlorothiazide [Hydrochlorothiazide] 12.5 MG Tablet) PO SCH (09:00)
[2024-04-02] MEDS: METHADONE HCL 10 MG TAB PO SCH (09:00)
[2024-04-02] MEDS: HYDROCODONE/APAP 7.5/325 MG TAB PO PRN (10:48)
[2024-04-02] MEDS: INSULIN REGULAR (HUMAN) 100 UNIT/ML SQ SCH (10:54)
[2024-04-02 11:56] LABS: Anion Gap 17.2 mEq/L (5.0-15.0); Potassium 4.2 mEq/L (3.5-5.1)
[2024-04-02] MEDS: NACHLORIDE 0.45% 1,000 ML IV SCH (13:56)
[2024-04-02] MEDS: NA CHLORIDE 0.9% 1,000 ML IV SCH (21:44)
[2024-04-03 05:22] LABS: Absolute Basophils 0.1 K/uL (0-0.5); Absolute Lymphocytes (CBC) 0.7 K/uL (0.7-4.9); Absolute Monocytes 0.9 K/uL (0.1-1.3); Absolute Neutrophil 20.7 K/uL (1.8-8.0); Basophils % 0.4 % (0-1.3); Eosinophils % 0.1 % (0-4.4); Hematocrit 36.2 % (39.6-49.0); Hemoglobin 12.3 g/dL (13.6-17.9); Lymphocytes % 3.1 % (15.3-44.8); MCH 31.3 pg (27.0-35.0); MCHC 33.9 g/dL (32.0-36.0); MCV 92.6 fL (80-100); MPV 7.4 fL (7.6-11.3); Monocytes % 4.1 % (3.3-12.3); Neutrophils % 92.3 % (41.7-73.7); Nucleated Red Blood Cells % 0.2 % (0-0); Platelets 211 thou/uL (152-406); RBC Red Blood Cell Count 3.91 M/uL (4.33-5.43); Red Cell Distribution Width 13.2 % (12.1-15.2)
[2024-04-03 05:45] LABS: Anion Gap 14.4 mEq/L (5.0-15.0); Magnesium 2.1 mg/dL (1.6-2.4); Phosphorus 2.3 mg/dL (2.5-4.9); Potassium 4.4 mEq/L (3.5-5.1)
[2024-04-03] MEDS: METRONIDAZOLE 500mg IVPB 500 MG/100 ML BAG IV SCH (11:02)
--- NOTE | 2024-04-03 11:46 | P.PN ---
Date of Service: 04/03/24 Subjective Encephalopathy clearing, tearer conversational Downgrading to the floor Blood sugar stable ROS 10 point ROS as noted above, otherwise negative Physical Exam General: Conversing, awake and alert, NAD HEENT: Atraumatic, Normocephalic, PERRLA Neck: Supple, 2+ carotid pulse no bruit Respiratory: Normal air movement, nonlabored breathing on RA Cardiovascular: mild tachycardia, Normal S1 S2 Capillary refill: <2 Seconds Gastrointestinal: Soft on palpation, NNT/ND Musculoskeletal: Integumentary: No rashes Neurological: lethargic Vitals Reviewed Problem list Severe Sepsis of unspecified organism Diabetes mellitus with severe DKA Metabolic Encephalopathy Severe dehydration 2/2 acidosis Severe hyponatremia secondary to severe volume depletion from ongoing diabetic ketoacidosis Hyperkalemia 2/2 acidosis Right arm spasm-resolved BOBBY with Uremia HTN Assessment and Plan Severe Sepsis 2/2 pancreatitis Diabetes mellitus with severe DKA Metabolic Encephalopathy Severe dehydration 2/2 acidosis Severe hyponatremia secondary to severe volume depletion from ongoing diabetic ketoacidosis Hyperkalemia 2/2 acidosis Right arm spasm- resolved -Sepsis criteria WBC 18.7, LA 7.8, HR 103, Resp 33 -admit to ICU -Initial labs WBC 18.7, sodium 103, potassium 7.4, chloride 67, bicarb < 8, anion gap 36.4, serum glucose 1742, LA 7 -agressive IVF, 2L given in the ED, NS per nephrology -Started vancomycin/cefepime (started 04/01) -Initial ABG-(pH 7.13, pCO2 70.5, pO2 125, HCO3 5.5) repeat ABG-(pH 7.33, pCO2 43.2, pO2 139, HCO3 22.3) -Desmopressin per nephrology -stopped insulin gtt, SSI now, ACHS glucose checks -BMP Q4H, stopped -Consult Nephrology -Neurology- reports, cannot rule out seizure without an EEG, will follow up outpatient as muscle spasms have resolved -Blood cultures no growth to date -CLD -CT abd/pelvis reports questionable acute on chronic pancreatitis, pancreas is severely atrophic/fatty replaced." -Lipase 144 trend daily Acute kidney failure secondary to acute tubular process -BUN/creatinine 16/0.82, GFR 96- much improved -IVF as above HTN -continue home medications when appropriate Methadone use, chronic back pain -Prescribed methadone -family reports self medicated after he attempted to wean, family is not sure how much he has been taking DVT ppx lovenox Full code LOS 3-4 days Discharge Plan: Home Plan to discharge in: 72 Hours
[2024-04-03] MEDS ORDERED: VANCOMYCIN 1.25 GM in NA CHLORIDE 0.9% 250 ML IVPB SCH (12:00)
[2024-04-03] MEDS ORDERED: D50W 25 GM/50 ML SYRINGE IV PRN (12:02)
[2024-04-03] MEDS ORDERED: HYDROCODONE/APAP 10/325 TAB PO PRN (12:08)
--- NOTE | 2024-04-03 20:46 | P.PN ---
Date of Service: 04/03/24 Vital Signs Temp Pulse Resp BP Pulse Ox 98.4 F 104 H 17 170/90 H 94 04/03/24 17:55 04/03/24 17:55 04/03/24 17:55 04/03/24 17:55 04/03/24 17:55 Medications Acetaminophen (Acetaminophen 325 Mg Tablet) 650 mg PO Q4HP PRN PRN Reason: Temp >100 F or mild pain Last Admin: 04/01/24 21:00 Dose: 650 mg Hydrocodone Bitart/Acetaminophen (Hydrocodone/Apap 10/325 Tab) 1 tab PO Q4H PRN PRN Reason: Pain scale 5-7 (Moderate) Dextrose (D50w 25 Gm/50 Ml Syringe) 12.5 gm IV PRN PRN; Protocol PRN Reason: HYPOGLYCEMIA Enoxaparin Sodium (Enoxaparin 40 Mg/0.4 Ml) 40 mg SQ DAILY [facility] Last Admin: 04/03/24 08:29 Dose: 40 mg Glucagon (Glucagon 1 Mg/Vial) 1 mg IM 1X PRN PRN Reason: HYPOGLYCEMIA Home Med (Simvastatin [Simvastatin]) 40 mg PO DAILY [facility] Home Med (Lisinopril [Zestril]) 40 mg PO DAILY [facility] Hydralazine HCl (Hydralazine Hcl 20 Mg/Ml Vial) 10 mg IV Q4HP PRN PRN Reason: FOR SBP>160 OR DBP>100 [facility] Last Admin: 04/02/24 21:45 Dose: 10 mg Cefepime HCl 2 gm/ Sodium (Chloride) 100 mls @ 200 mls/hr IV Q12HR [facility]; Protocol Last Admin: 04/03/24 08:29 Dose: 100 mls Dextrose (Dextrose 10% Water Iv Soln.) 125 mls @ 0 mls/hr IV PRN PRN; Protocol PRN Reason: HYPOGLYCEMIA Sodium Chloride (Ns 1000 Ml Ivbag) 1,000 mls @ 50 mls/hr IV .Q20H [facility] Last Admin: 04/03/24 17:22 Dose: 1,000 mls Metronidazole/Sodium Chloride (Flagyl 500mg/100 Ml Iv Premix) 500 mg in 100 mls @ 100 mls/hr IV Q8HR [facility] Last Admin: 04/03/24 16:06 Dose: 100 mls Insulin Human Regular (Insulin Regular (Human) 100 Unit/Ml) 0 unit SQ ACHS [facility]; Protocol Last Admin: 04/03/24 16:06 Dose: 8 unit Labetalol HCl (Labetalol 20 Mg/4ml Syringe) 10 mg IV Q4H PRN PRN Reason: Goal to achieve SBP in comment Last Admin: 04/03/24 01:50 Dose: 10 mg Methadone HCl (Methadone Hcl 10 Mg Tab) 10 mg PO Q6H [facility] Last Admin: 04/03/24 14:44 Dose: 10 mg Nifedipine (Nifedipine Xl 30 Mg Tablet) 30 mg PO DAILY [facility] Microbiology Results 03/31/24 12:15 Blood - Blood Aerobic Blood Culture - Preliminary No growth in 24 hours. 03/31/24 12:15 Blood - Blood Anaerobic Blood Culture - Preliminary No growth in 24 hours. 03/31/24 12:20 Blood - Blood Aerobic Blood Culture - Preliminary No growth in 24 hours. 03/31/24 12:20 Blood - Blood Anaerobic Blood Culture - Preliminary No growth in 24 hours. Assessment/ Plan: Nephrology No dyspnea No chest pain Poor memory No acute events overnight Vitals, medications, blood work and imaging reviewed in the chart NAD. MMM. NCAT. Normal Respiratory Effort. S1S2. ND Abd. No C/C/E. No rash. AAO. Normal speech. Hyponatremia -Continue IVF Metabolic Acidosis -Continue oral bicarb Hypophosphatemia -Encourage nutrition HTN -Continue Lisinopril and Nifedipine -Start Coreg BID DM II with DKA with coma -RISS -Continue IVF Hospitalist note reviewed
[2024-04-03] MEDS: NIFEDIPINE XL 30 MG TABLET PO SCH (21:49)
--- NOTE | 2024-04-03 21:53 | CON ---
Reason For Consultation: Consultation called because of altered mental status. History Of Present Illness: Mr. Michelle is a 68-year-old patient with hypertension, dyslipidemia, bib betes mellitus, and poor compliance with medications, who developed diffuse weakness, nausea, vomitin g, shaking, and confusion on the 23 of March. He was initially evaluated, but did not follow up due to the weather and was seen on the . At that time, worsening thirst, increased urination, we akness, shaking. At [facility], white blood cell count elevated to 18.7, sodium down to 103, potassi um elevated to 7.4, chloride decreased to 6.7, bicarbonate was less than 8, anion gap of 36 with elev ated BUN of 94, creatinine 3.31. His serum glucose was 1742. Lactic acid 7. He was admitted with marilou beaver diabetic ketoacidosis and given 2 L of normal saline bolus, calcium gluconate, and for white bl ood cell elevated to 18,000, he received Rocephin, Valium, Ativan, and sodium bicarb. He was then ad mitted to the ICU. Head CT scan was done on 11/30, the study showed no acute intracranial abnormalit ies, mild nonspecific white matter changes likely secondary to chronic small vessel ischemic disease. The patient did improve significantly. At the time of my evaluation, which is the , the patient had been in hospital now for 3 days and received IV fluids and correction of the electrolyte abnormal ities, although there was apparently more rapid correction of his sodium. His laboratory studies did show improvement from initial 103 sodium, he corrected to 127 within a day, which is fairly quickly as he was put on insulin drip. Sodium level today is 136, chloride 105, potassium 4.3, creatinine im proved to 2.01, and glucose now ranged 196, normal calcium, phosphorus, and magnesium. White blood c ell count is still elevated, was 18.7 on the , now 22.5, neutrophils 92.3, INR 1.17. He was posi tive for methadone when he recently came into hospital. Urinalysis consistent with very elevated blo od sugars, it was 4+ glucose, 2+ ketones, 1+ blood, 5 to 10 red blood cells, many unidentified opal ls, and trace protein. Past Medical History: As noted. Current Medications: Tylenol 650 every 4 hours as needed, Camby 10/325 every 4 hours as needed, cefe pime 1 g every 12 hours, Lovenox 40 mg subcutaneously daily, glucagon 1 mg as needed for hypoglycemia , Apresoline 10 mg every 4 hours as needed, labetalol 10 mg every 4 hours as needed, he has methadone 10 mg every 6 hours and Flagyl 500 mg every 8 hours, he is receiving again normal saline at 50 cc an hour. Family History: Noncontributory. Allergies: THIAZIDES. Review of Systems: Currently, the patient does not report any ongoing fevers or chills. No myalgias, arthralgias. Cosmo es a rash. Denies any psychiatric issues. No other complaints. Social History: In the past, alcohol and tobacco use, no current use. Past Surgical History: He has had hand surgery and appendectomy. Physical Examination: Vital Signs: Blood pressure 170/90, pulse up to 104, respiratory rate 16, temperature 98.4, oxygen s aturation 97%. General: Mr. Michelle is now in the ICU. He is recovering very well. Family at bedside. HEENT: He appears normocephalic, atraumatic. Sclerae anicteric. Oropharynx pink, moist. Neck: Supple. Chest: Clear. Heart: Regular. Extremities: Show no clubbing, cyanosis, or edema. Neurologic: He is alert and oriented to person, place, time, situation. He has no focal cranial ner ves, motor, coordination, or sensory deficits. Reflexes symmetric. Assessment: Mr. Michelle is a 68-year-old patient with encephalopathy that is now resolving due to sev ere diabetic ketoacidosis. Still has significant elevation in white count with potential for aspirat ion pneumonia etiology. Urinalysis also could have been a contributing factor. He has 2 negative bl ood cultures. Plan: Continue with aggressive management of his blood sugars. He did have rapid correction of sodi um, which may be a contributing factor to encephalopathy. In addition, his renal function was improv ing with uremic encephalopathy with elevated BUN, that is also improved with hydration. At this poin t, for his plan, we will continue with aggressive rehydration. Sodium is corrected. Potassium corre cted. We will emphasize the need for stricter blood sugar control, blood pressure control as well. He may be on aspirin 81 mg daily and needs a lipid panel to determine if he is at risk for stroke giv en diabetes, hypertension, and may start a statin. In addition, folic acid 1 mg daily. After the hugh alexander's discharge, he may follow up in Dr. Negro's clinic within the month. AXEL/SHERIN Voice ID: [id number] Report ID: [id number]
[2024-04-04 07:07] LABS: Absolute Lymphocytes (CBC) 0.6 K/uL (0.7-4.9); Absolute Neutrophil 16.1 K/uL (1.8-8.0); Basophils % 0.1 % (0-1.3); Eosinophils % 0.1 % (0-4.4); Hematocrit 35.7 % (39.6-49.0); Hemoglobin 11.9 g/dL (13.6-17.9); Lymphocytes % 3.6 % (15.3-44.8); MCH 31.2 pg (27.0-35.0); MCHC 33.5 g/dL (32.0-36.0); MCV 93.1 fL (80-100); MPV 7.5 fL (7.6-11.3); Monocytes % 5.6 % (3.3-12.3); Neutrophils % 90.6 % (41.7-73.7); Platelets 250 thou/uL (152-406); RBC Red Blood Cell Count 3.84 M/uL (4.33-5.43); Red Cell Distribution Width 13.1 % (12.1-15.2)
[2024-04-04 07:22] LABS: Anion Gap 15.3 mEq/L (5.0-15.0); Phosphorus 2.3 mg/dL (2.5-4.9); Potassium 4.3 mEq/L (3.5-5.1)
[2024-04-04] MEDS: lisinopriL 20 MG TAB PO SCH (08:55)
[2024-04-04] MEDS: SODIUM BICARB 325 MG TAB PO SCH (08:55)
[2024-04-04] MEDS: ATORVASTATIN 20 MG TAB PO SCH (08:57)
[2024-04-04] MEDS: carvediloL 12.5 MG TAB PO SCH (08:57)
[2024-04-04] MEDS: INSULIN GLARGINE 100 UNIT/ML SQ SCH (08:58)
[2024-04-04] MEDS: METHADONE HCL 10 MG TAB PO SCH (09:00)
[2024-04-04] MEDS: POTASS/SODIUM PHOSPHATE 1 PKT POWD.PACK PO SCH (11:59)
--- NOTE | 2024-04-04 14:23 | P.PN ---
Date of Service: 04/04/24 Subjective Mental status continues to improve No acute events overnight ROS 10 point ROS as noted above, otherwise negative Physical Exam General: Conversing, awake and alert, NAD HEENT: Atraumatic, Normocephalic, PERRLA Neck: Supple, 2+ carotid pulse no bruit Respiratory: Normal air movement, nonlabored breathing on RA Cardiovascular: mild tachycardia, Normal S1 S2 Capillary refill: <2 Seconds Gastrointestinal: Soft on palpation, NNT/ND Musculoskeletal: Integumentary: No rashes Neurological: lethargic Vitals Reviewed Problem list SIRS criteria Diabetes mellitus with severe DKA Metabolic Encephalopathy Severe dehydration 2/2 acidosis Severe hyponatremia secondary to severe volume depletion from ongoing diabetic ketoacidosis Hyperkalemia 2/2 acidosis Right arm spasm-resolved BOBBY with Uremia HTN Assessment and Plan SIRS criteria Diabetes mellitus with severe DKA Metabolic Encephalopathy Severe dehydration 2/2 acidosis Severe hyponatremia secondary to severe volume depletion from ongoing diabetic ketoacidosis Hyperkalemia 2/2 acidosis Right arm spasm- resolved -No clear source of infection at this time -White blood cell count improving -Started vancomycin/cefepime (started 04/01) -Initial sodium 103, corrected for glucose was 129 -Nephrology following -Neurology- reports, cannot rule out seizure without an EEG, will follow up outpatient as muscle spasms have resolved -Blood cultures no growth to date -CT abd/pelvis reports questionable acute on chronic pancreatitis, pancreas is severely atrophic/fatty replaced." Acute kidney failure secondary to acute tubular process-improving -IVF as above -monitor chemistry daily HTN -continue home medications when appropriate Methadone use, chronic back pain -Prescribed methadone -family reports self medicated after he attempted to wean, family is not sure how much he has been taking -Trying 5mg daily as family reports this is the dose he was weaned down to o utpatient DVT ppx lovenox Full code LOS 3-4 days
--- NOTE | 2024-04-04 21:25 | P.PN ---
Date of Service: 04/04/24 Vital Signs Temp Pulse Resp BP Pulse Ox 98.0 F 87 18 104/58 L 92 04/04/24 16:00 04/04/24 18:39 04/04/24 16:00 04/04/24 18:39 04/04/24 16:00 Medications Acetaminophen (Acetaminophen 325 Mg Tablet) 650 mg PO Q4HP PRN PRN Reason: Temp >100 F or mild pain Last Admin: 04/01/24 21:00 Dose: 650 mg Hydrocodone Bitart/Acetaminophen (Hydrocodone/Apap 10/325 Tab) 1 tab PO Q4H PRN PRN Reason: Pain scale 5-7 (Moderate) Atorvastatin Calcium (Atorvastatin 20 Mg Tab) 20 mg PO DAILY [facility] Last Admin: 04/04/24 08:57 Dose: 20 mg Carvedilol (Carvedilol 12.5 Mg Tab) 12.5 mg PO BIDWM [facility] Last Admin: 04/04/24 18:39 Dose: 12.5 mg Dextrose (D50w 25 Gm/50 Ml Syringe) 12.5 gm IV PRN PRN; Protocol PRN Reason: HYPOGLYCEMIA Enoxaparin Sodium (Enoxaparin 40 Mg/0.4 Ml) 40 mg SQ DAILY [facility] Last Admin: 04/04/24 08:54 Dose: 40 mg Glucagon (Glucagon 1 Mg/Vial) 1 mg IM 1X PRN PRN Reason: HYPOGLYCEMIA Hydralazine HCl (Hydralazine Hcl 20 Mg/Ml Vial) 10 mg IV Q4HP PRN PRN Reason: FOR SBP>160 OR DBP>100 MMHG Last Admin: 04/03/24 21:50 Dose: 10 mg Cefepime HCl 2 gm/ Sodium (Chloride) 100 mls @ 200 mls/hr IV Q12HR [facility]; Protocol Last Admin: 04/04/24 08:55 Dose: 100 mls Dextrose (Dextrose 10% Water Iv Soln.) 125 mls @ 0 mls/hr IV PRN PRN; Protocol PRN Reason: HYPOGLYCEMIA Sodium Chloride (Ns 1000 Ml Ivbag) 1,000 mls @ 50 mls/hr IV .Q20H [facility] Last Admin: 04/04/24 18:36 Dose: 1,000 mls Metronidazole/Sodium Chloride (Flagyl 500mg/100 Ml Iv Premix) 500 mg in 100 mls @ 100 mls/hr IV Q8HR [facility] Last Admin: 04/04/24 18:40 Dose: 100 mls Insulin Glargine (Insulin Glargine 100 Unit/Ml) 10 unit SQ DAILY [facility] Insulin Human Regular (Insulin Regular (Human) 100 Unit/Ml) 0 unit SQ ACHS [facility]; Protocol Last Admin: 04/04/24 18:39 Dose: 5 unit Labetalol HCl (Labetalol 20 Mg/4ml Syringe) 10 mg IV Q4H PRN PRN Reason: Goal to achieve SBP in comment Last Admin: 04/03/24 01:50 Dose: 10 mg Lisinopril (Lisinopril 20 Mg Tab) 40 mg PO DAILY [facility] Last Admin: 04/04/24 08:55 Dose: 40 mg Methadone HCl (Methadone Hcl 10 Mg Tab) 5 mg PO DAILY [facility] Last Admin: 04/04/24 09:00 Dose: Not Given Nifedipine (Nifedipine Xl 30 Mg Tablet) 30 mg PO DAILY [facility] Last Admin: 04/04/24 08:56 Dose: 30 mg Sodium Bicarbonate (Sodium Bicarb 325 Mg Tab) 650 mg PO QID [facility] Last Admin: 04/04/24 18:36 Dose: 650 mg Microbiology Results 03/31/24 12:15 Blood - Blood Aerobic Blood Culture - Preliminary No growth in 24 hours. 03/31/24 12:15 Blood - Blood Anaerobic Blood Culture - Preliminary No growth in 24 hours. 03/31/24 12:20 Blood - Blood Aerobic Blood Culture - Preliminary No growth in 24 hours. 03/31/24 12:20 Blood - Blood Anaerobic Blood Culture - Preliminary No growth in 24 hours. Assessment/ Plan: Nephrology No dyspnea No chest pain Reports improving memory No acute events overnight Vitals, medications, blood work and imaging reviewed in the chart NAD. MMM. NCAT. Normal Respiratory Effort. S1S2. ND Abd. No C/C/E. No rash. AAO. Normal speech. Hyponatremia -Continue IVF Metabolic Acidosis -Start oral bicarb Hypophosphatemia -Encourage nutrition HTN -Continue Nifedipine ER 30mg -Continue Coreg 12.5mg BID -Reduce Lisinopril 20mg daily DM II with DKA with coma -RISS -Continue IVF Hospitalist note reviewed
[2024-04-05 06:00] LABS: Absolute Eosinophils 0.1 K/uL (0-0.5); Absolute Lymphocytes (CBC) 0.7 K/uL (0.7-4.9); Absolute Monocytes 1.4 K/uL (0.1-1.3); Absolute Neutrophil 11.5 K/uL (1.8-8.0); Basophils % 0.3 % (0-1.3); Eosinophils % 0.6 % (0-4.4); Hematocrit 33.1 % (39.6-49.0); Hemoglobin 11.1 g/dL (13.6-17.9); Lymphocytes % 5.4 % (15.3-44.8); MCH 31.3 pg (27.0-35.0); MCHC 33.5 g/dL (32.0-36.0); MCV 93.3 fL (80-100); MPV 7.2 fL (7.6-11.3); Neutrophils % 83.7 % (41.7-73.7); Nucleated Red Blood Cells % 0.1 % (0-0); Platelets 272 thou/uL (152-406); RBC Red Blood Cell Count 3.55 M/uL (4.33-5.43); Red Cell Distribution Width 13.1 % (12.1-15.2)
[2024-04-05 06:17] LABS: Anion Gap 12.7 mEq/L (5.0-15.0); Magnesium 2.1 mg/dL (1.6-2.4); Phosphorus 2.6 mg/dL (2.5-4.9); Potassium 3.7 mEq/L (3.5-5.1)
[2024-04-05] MEDS ORDERED: INSULIN GLARGINE 100 UNIT/ML SQ SCH (09:00)
[2024-04-05] MEDS: POLYETHYL GLY 3350 17 GM/DOSE PO ONE (09:18)
[2024-04-05] MEDS: lisinopriL 20 MG TAB PO SCH (09:19)
[2024-04-05] MEDS: INSULIN GLARGINE 100 UNIT/ML SQ SCH (09:20)
--- NOTE | 2024-04-05 12:47 | EKG ---
Test Date: 2024-03-31 Test Time: 12:31:08 Property Claims Adjuster: JUSTIN MEASUREMENT RESULTS: Intervals: Rate: 100 PA: 208 QRSD: 98 QT: 350 QTc: 451 [place]: P: 72 PA: 208 QRS: 52 T: 56 INTERPRETIVE STATEMENTS: Normal sinus rhythm Normal ECG Compared to ECG 05/31/2015 00:21:23 No significant changes Electronically Signed On 04-05-24 12:37:33 [employer] SUPERVISOR by Manny Cavazos
--- NOTE | 2024-04-05 15:39 | P.PN ---
Date of Service: 04/05/24 Subjective Mental status continues to improve No acute events overnight ROS 10 point ROS as noted above, otherwise negative Physical Exam General: Conversing, awake and alert, NAD HEENT: Atraumatic, Normocephalic, PERRLA Neck: Supple, 2+ carotid pulse no bruit Respiratory: Normal air movement, nonlabored breathing on RA Cardiovascular: mild tachycardia, Normal S1 S2 Capillary refill: <2 Seconds Gastrointestinal: Soft on palpation, NNT/ND Musculoskeletal: Integumentary: No rashes Neurological: lethargic Vitals Reviewed Problem list SIRS criteria Diabetes mellitus with severe DKA Metabolic Encephalopathy Severe dehydration 2/2 acidosis Severe hyponatremia secondary to severe volume depletion from ongoing diabetic ketoacidosis Hyperkalemia 2/2 acidosis Right arm spasm-resolved BOBBY with Uremia HTN Assessment and Plan SIRS criteria Diabetes mellitus with severe DKA Metabolic Encephalopathy Severe dehydration 2/2 acidosis Severe hyponatremia secondary to severe volume depletion from ongoing diabetic ketoacidosis Hyperkalemia 2/2 acidosis Right arm spasm- resolved -No clear source of infection at this time -White blood cell count improving -Started vancomycin/cefepime (started 04/01) -Now on just cefepime -Initial sodium 103, corrected for glucose was 129 -Nephrology following -Neurology- reports, cannot rule out seizure without an EEG, will follow up outpatient as muscle spasms have resolved -Blood cultures no growth to date -CT abd/pelvis reports questionable acute on chronic pancreatitis, pancreas is severely atrophic/fatty replaced." -Started long acting insulin at 10u daily 04/04, titrated up to 15 units 04/05 Acute kidney failure secondary to acute tubular process-improving -IVF as above -monitor chemistry daily HTN -continue home medications when appropriate Methadone use, chronic back pain -Prescribed methadone -family reports self medicated after he attempted to wean, family is not sure how much he has been taking -Trying 5mg daily as family reports this is the dose he was weaned down to outpatient DVT ppx lovenox Full code LOS 3-4 days
--- NOTE | 2024-04-05 21:17 | P.PN ---
Date of Service: 04/05/24 Vital Signs Temp Pulse Resp BP Pulse Ox 98.4 F 98 H 16 134/72 95 04/05/24 16:00 04/05/24 16:00 04/05/24 16:00 04/05/24 16:00 04/05/24 16:00 Medications Acetaminophen (Acetaminophen 325 Mg Tablet) 650 mg PO Q4HP PRN PRN Reason: Temp >100 F or mild pain Last Admin: 04/01/24 21:00 Dose: 650 mg Hydrocodone Bitart/Acetaminophen (Hydrocodone/Apap 10/325 Tab) 1 tab PO Q4H PRN PRN Reason: Pain scale 5-7 (Moderate) Atorvastatin Calcium (Atorvastatin 20 Mg Tab) 20 mg PO DAILY [facility] Last Admin: 04/05/24 09:18 Dose: 20 mg Carvedilol (Carvedilol 12.5 Mg Tab) 12.5 mg PO BIDWM [facility] Last Admin: 04/05/24 17:41 Dose: 12.5 mg Dextrose (D50w 25 Gm/50 Ml Syringe) 12.5 gm IV PRN PRN; Protocol PRN Reason: HYPOGLYCEMIA Enoxaparin Sodium (Enoxaparin 40 Mg/0.4 Ml) 40 mg SQ DAILY [facility] Last Admin: 04/05/24 09:18 Dose: 40 mg Glucagon (Glucagon 1 Mg/Vial) 1 mg IM 1X PRN PRN Reason: HYPOGLYCEMIA Hydralazine HCl (Hydralazine Hcl 20 Mg/Ml Vial) 10 mg IV Q4HP PRN PRN Reason: FOR SBP>160 OR DBP>100 MMHG Last Admin: 04/03/24 21:50 Dose: 10 mg Cefepime HCl 2 gm/ Sodium (Chloride) 100 mls @ 200 mls/hr IV Q12HR [facility]; Protocol Last Admin: 04/05/24 09:17 Dose: 100 mls Dextrose (Dextrose 10% Water Iv Soln.) 125 mls @ 0 mls/hr IV PRN PRN; Protocol PRN Reason: HYPOGLYCEMIA Sodium Chloride (Ns 1000 Ml Ivbag) 1,000 mls @ 50 mls/hr IV .Q20H [facility] Last Admin: 04/05/24 09:16 Dose: 1,000 mls Insulin Glargine (Insulin Glargine 100 Unit/Ml) 15 unit SQ DAILY [facility] Last Admin: 04/05/24 09:20 Dose: 15 unit Insulin Human Regular (Insulin Regular (Human) 100 Unit/Ml) 0 unit SQ ACHS [facility]; Protocol Last Admin: 04/05/24 17:41 Dose: 7 unit Labetalol HCl (Labetalol 20 Mg/4ml Syringe) 10 mg IV Q4H PRN PRN Reason: Goal to achieve SBP in comment Last Admin: 04/03/24 01:50 Dose: 10 mg Lisinopril (Lisinopril 20 Mg Tab) 20 mg PO DAILY [facility] Last Admin: 04/05/24 09:19 Dose: 20 mg Methadone HCl (Methadone Hcl 10 Mg Tab) 5 mg PO DAILY [facility] Last Admin: 04/05/24 09:19 Dose: 5 mg Nifedipine (Nifedipine Xl 30 Mg Tablet) 30 mg PO DAILY [facility] Last Admin: 04/05/24 09:18 Dose: 30 mg Sodium Bicarbonate (Sodium Bicarb 325 Mg Tab) 650 mg PO QID [facility] Last Admin: 04/05/24 17:41 Dose: 650 mg Microbiology Results 03/31/24 12:15 Blood - Blood Aerobic Blood Culture - Final No growth in 5 days. 03/31/24 12:15 Blood - Blood Anaerobic Blood Culture - Final No growth in 5 days. 03/31/24 12:20 Blood - Blood Aerobic Blood Culture - Final No growth in 5 days. 03/31/24 12:20 Blood - Blood Anaerobic Blood Culture - Final No growth in 5 days. Assessment/ Plan: Nephrology No dyspnea No chest pain Reports improving memory Feeling better No acute events overnight Vitals, medications, blood work and imaging reviewed in the chart NAD. MMM. NCAT. Normal Respiratory Effort. S1S2. ND Abd. No C/C/E. No rash. AAO. Normal speech. Hyponatremia -Continue IVF Metabolic Acidosis -Continue oral bicarb Hypophosphatemia -Encourage nutrition HTN -Continue Nifedipine ER 30mg -Continue Coreg 12.5mg BID -Continue Lisinopril 20mg daily DM II with DKA with coma -RISS -Continue IVF Hospitalist note reviewed
[2024-04-06 05:45] LABS: Absolute Eosinophils 0.1 K/uL (0-0.5); Absolute Lymphocytes (CBC) 0.9 K/uL (0.7-4.9); Absolute Monocytes 1.5 K/uL (0.1-1.3); Absolute Neutrophil 9.3 K/uL (1.8-8.0); Basophils % 0.2 % (0-1.3); Eosinophils % 0.9 % (0-4.4); Hematocrit 31.3 % (39.6-49.0); Hemoglobin 10.6 g/dL (13.6-17.9); Lymphocytes % 7.7 % (15.3-44.8); MCH 31.2 pg (27.0-35.0); MCHC 33.9 g/dL (32.0-36.0); MPV 6.8 fL (7.6-11.3); Monocytes % 12.5 % (3.3-12.3); Neutrophils % 78.7 % (41.7-73.7); Nucleated Red Blood Cells % 0.1 % (0-0); Platelets 290 thou/uL (152-406); Red Cell Distribution Width 13.5 % (12.1-15.2)
[2024-04-06 05:59] LABS: Anion Gap 14.2 mEq/L (5.0-15.0); Magnesium 1.8 mg/dL (1.6-2.4); Phosphorus 2.9 mg/dL (2.5-4.9); Potassium 3.2 mEq/L (3.5-5.1)
[2024-04-06 07:55] VITALS: BMI 26.2
[2024-04-06] MEDS: POTASSIUM CL SA 10 MEQ TAB PO ONE (09:27)
[2024-04-06] MEDS: INSULIN GLARGINE 100 UNIT/ML SQ SCH (09:29)
--- NOTE | 2024-04-06 11:48 | P.PN ---
Date of Service: 04/06/24 Vital Signs Temp Pulse Resp BP Pulse Ox 98.5 F 81 15 179/94 H 96 04/06/24 08:00 04/06/24 08:00 04/06/24 08:00 04/06/24 08:00 04/06/24 08:00 Medications Acetaminophen (Acetaminophen 325 Mg Tablet) 650 mg PO Q4HP PRN PRN Reason: Temp >100 F or mild pain Last Admin: 04/01/24 21:00 Dose: 650 mg Hydrocodone Bitart/Acetaminophen (Hydrocodone/Apap 10/325 Tab) 1 tab PO Q4H PRN PRN Reason: Pain scale 5-7 (Moderate) Atorvastatin Calcium (Atorvastatin 20 Mg Tab) 20 mg PO DAILY [facility] Last Admin: 04/06/24 09:28 Dose: 20 mg Carvedilol (Carvedilol 12.5 Mg Tab) 12.5 mg PO BIDWM [facility] Last Admin: 04/06/24 09:27 Dose: 12.5 mg Dextrose (D50w 25 Gm/50 Ml Syringe) 12.5 gm IV PRN PRN; Protocol PRN Reason: HYPOGLYCEMIA Enoxaparin Sodium (Enoxaparin 40 Mg/0.4 Ml) 40 mg SQ DAILY [facility] Last Admin: 04/06/24 09:28 Dose: 40 mg Glucagon (Glucagon 1 Mg/Vial) 1 mg IM 1X PRN PRN Reason: HYPOGLYCEMIA Hydralazine HCl (Hydralazine Hcl 20 Mg/Ml Vial) 10 mg IV Q4HP PRN PRN Reason: FOR SBP>160 OR DBP>100 MMHG Last Admin: 04/03/24 21:50 Dose: 10 mg Cefepime HCl 2 gm/ Sodium (Chloride) 100 mls @ 200 mls/hr IV Q12HR [facility]; Protocol Last Admin: 04/06/24 09:28 Dose: 100 mls Dextrose (Dextrose 10% Water Iv Soln.) 125 mls @ 0 mls/hr IV PRN PRN; Protocol PRN Reason: HYPOGLYCEMIA Insulin Glargine (Insulin Glargine 100 Unit/Ml) 20 unit SQ DAILY [facility] Last Admin: 04/06/24 09:29 Dose: 20 unit Insulin Human Regular (Insulin Regular (Human) 100 Unit/Ml) 0 unit SQ ACHS [facility]; Protocol Last Admin: 04/06/24 09:26 Dose: 3 unit Labetalol HCl (Labetalol 20 Mg/4ml Syringe) 10 mg IV Q4H PRN PRN Reason: Goal to achieve SBP in comment Last Admin: 04/03/24 01:50 Dose: 10 mg Lisinopril (Lisinopril 20 Mg Tab) 20 mg PO DAILY [facility] Last Admin: 04/06/24 09:29 Dose: 20 mg Methadone HCl (Methadone Hcl 10 Mg Tab) 5 mg PO DAILY [facility] Last Admin: 04/06/24 09:27 Dose: 5 mg Nifedipine (Nifedipine Xl 30 Mg Tablet) 30 mg PO DAILY [facility] Last Admin: 04/06/24 09:29 Dose: 30 mg Sodium Bicarbonate (Sodium Bicarb 325 Mg Tab) 650 mg PO QID [facility] Last Admin: 04/06/24 09:29 Dose: 650 mg Microbiology Results 03/31/24 12:15 Blood - Blood Aerobic Blood Culture - Final No growth in 5 days. 03/31/24 12:15 Blood - Blood Anaerobic Blood Culture - Final No growth in 5 days. 03/31/24 12:20 Blood - Blood Aerobic Blood Culture - Final No growth in 5 days. 03/31/24 12:20 Blood - Blood Anaerobic Blood Culture - Final No growth in 5 days. Assessment/ Plan: Nephrology No dyspnea No chest pain Reports improving memory Doing well No acute events overnight Vitals, medications, blood work and imaging reviewed in the chart NAD. MMM. NCAT. Normal Respiratory Effort. S1S2. ND Abd. No C/C/E. No rash. AAO. Normal speech. Hyponatremia -Discontinue IVF Hypokalemia -Replete as ordered Metabolic Acidosis -Continue oral bicarb; hold at discharge Hypophosphatemia -Maintain nutrition HTN -Continue Nifedipine ER 30mg -Continue Coreg 12.5mg BID -Continue Lisinopril 20mg daily DM II with DKA with coma -RISS -Continue IVF Hospitalist note reviewed Case reviewed with the hospitalist team
[2024-04-06 12:24] VITALS: BP 133/79; TEMP 98.6
--- NOTE | 2024-04-06 13:58 | P.DS ---
Admission Date: 03/31/24 Discharge Date: 04/06/24 Disposition: ROUTINE DISCHARGE Discharge Condition: GOOD Reason for Admission: Severe DKA Brief History of Present Illness: Lázaro Michelle is a 68 year old male with Pmhx HTN, HLD presents to the ED with chief complaint of weakness, nausea, and shaking. Family reports he saw the doctor on 03/23 for evaluation of elevated glucose but was unable to follow-up on Friday 03/24 due to the weather. Reportedly he had worsening thirst, urination, weakness, nausea, and shaking. Family decided to bring him to the ED today. Laboratory evaluation significant for WBC 18.7, sodium 103, potassium 7.4, chloride 67, bicarb less than 8, anion gap 36.4, BUN 94, creatinine 3.31, GFR 19, serum glucose 1742, lactic acid 7. While in the ED, he was given 2 LNS bolus, calcium gluconate, Rocephin, Valium, Ativan, and sodium bicarb. Lázaro will be admitted to hospitalist service for further evaluation and treatment of severe DKA. Hospital Course: Problem list SIRS criteria Diabetes mellitus with severe DKA Metabolic Encephalopathy Severe dehydration 2/2 acidosis Severe hyponatremia secondary to severe volume depletion from ongoing diabetic ketoacidosis Hyperkalemia 2/2 acidosis Right arm spasm-resolved BOBBY with Uremia HTN Patient was initially admitted to the hospital for severe DKA with a glucose of 1742, bicarb of less than 8, lactate of 7.8 sodium of 103-pseudohyponatremia corrected 129. He had been previously told that he was borderline diabetic and started on metformin outpatient but over the holidays had been eating lots of sweets and not monitoring his blood sugar outpatient. He was admitted, treated with an insulin drip and had gradual improvement he has been off of insulin drip for the last few days, he did experience some encephalopathy likely related to the electrolyte derangements, DKA/ICU delirium. This resolved over time and with better management of his glucose/electrolytes. A1c was checked and was 12.3. He was started on long-acting insulin which has been titrated up throughout his stay. He is currently on 20 units of long- acting insulin which is what he will be prescribed at discharge. He will need to follow-up closely with a local primary care doctor and also with nephrology. Recommend that he continues his blood pressure medications including his lisinopril, nifedipine. Coreg 12.5 mg twice daily was added to his home medications at discharge, he did take this medication throughout his hospitalization. His white blood cell count was markedly elevated in the early part of his hospitalization starting 18.7 peaking at 25.6 and then downtrending now to 11.8. He has remained afebrile, no clear source of infection has been identified, he has been on cefepime now for the last 5 days. Will also prescribe empiric antibiotics with 3 more days of cefdinir. Vital Signs/Physical Exam: Temp Pulse Resp BP Pulse Ox 98.6 F 91 H 16 133/79 97 04/06/24 12:00 04/06/24 12:00 04/06/24 12:00 04/06/24 12:00 04/06/24 12:00 General: Alert, In no apparent distress, Oriented x3 HEENT: Atraumatic, PERRLA Neck: Supple, JVD not distended Respiratory: Clear to auscultation bilaterally, Normal air movement Cardiovascular: Regular rate/rhythm, Normal S1 S2 Gastrointestinal: Normal bowel sounds, No tenderness Musculoskeletal: No tenderness Integumentary: No rashes Neurological: Normal speech, Normal affect Laboratory Data at Discharge: WBC 11.80 thou/uL (4.3-10.9) H 04/06/24 05:26 Hgb 10.6 g/dL (13.6-17.9) L 04/06/24 05:26 Hct 31.3 % (39.6-49.0) L 04/06/24 05:26 Plt Count 290 thou/uL (152-406) 04/06/24 05:26 PT 12.3 SECONDS (9.4-12.5) 03/31/24 12:30 INR 1.17 03/31/24 12:30 APTT 24.1 SECONDS (24.3-36.9) L 03/31/24 12:30 Sodium 138 mEq/L (136-145) 04/06/24 05:26 Potassium 3.2 mEq/L (3.5-5.1) L D 04/06/24 05:26 BUN 18 mg/dL (7-18) 04/06/24 05:26 Creatinine 0.69 mg/dL (0.70-1.30) L 04/06/24 05:26 Glucose 164 mg/dL (74-106) H 04/06/24 05:26 Phosphorus 2.9 mg/dL (2.5-4.9) 04/06/24 05:26 Magnesium 1.8 mg/dL (1.6-2.4) 04/06/24 05:26 Total Bilirubin 0.6 mg/dL (0.2-1.0) 03/31/24 12:30 AST < 10 U/L (15-37) L 03/31/24 12:30 ALT 29 U/L (16-61) 03/31/24 12:30 Alkaline Phosphatase 156 U/L (45-117) H 03/31/24 12:30 Triglycerides 86 mg/dL (<150) 04/02/24 05:04 Lipase 43 U/L (13-75) 04/05/24 05:28 Home Medications: Lisinopril [Zestril] 40 mg PO DAILY 04/01/24 Metformin HCl 500 mg PO BID 04/01/24 Nifedipine Xl [Procardia Xl*] 30 mg PO DAILY 04/01/24 Simvastatin 40 mg PO DAILY 04/01/24 Tramadol HCl [Ultram] 50 mg PO Q6H 04/01/24 Blood Sugar Diagnostic [Blood Glucose Test Strip] 1 each [facility]CHS #140 strip 04/06/24 Blood Sugar Diagnostic [Test Strips] 1 each ACHS #140 strip 04/06/24 Blood-Glucose Meter [Blood Glucose Meter] 1 each ACHS #1 ea 04/06/24 Cefdinir [Cefdinir*] 300 mg PO BID 3 Days #6 cap 04/06/24 Insulin Glargine,Hum.rec.anlog [Lantus Solostar] 20 unit SQ DAILY #6 ml 04/06/24 carvediloL [Coreg*] 12.5 mg PO BIDWM #120 tab 04/06/24 New Medications: Blood-Glucose Meter [Blood Glucose Meter] 1 each ACHS #1 ea Blood Sugar Diagnostic [Blood Glucose Test Strip] 1 each ACHS #140 strip Cefdinir [Cefdinir*] 300 mg PO BID 3 Days #6 cap carvediloL [Coreg*] 12.5 mg PO BIDWM #120 tab Insulin Glargine,Hum.rec.anlog [Lantus Solostar] 20 unit SQ DAILY #6 ml Blood Sugar Diagnostic [Test Strips] [address] [facility] #140 strip Physician Discharge Instructions: Patient was initially admitted to the hospital for severe DKA with a glucose of 1742, bicarb of less than 8, lactate of 7.8 sodium of 103-pseudohyponatremia corrected 129. He had been previously told that he was borderline diabetic and started on metformin outpatient but over the holidays had been eating lots of sweets and not monitoring his blood sugar outpatient. He was admitted, treated with an insulin drip and had gradual improvement he has been off of insulin drip for the last few days, he did experience some encephalopathy likely related to the electrolyte derangements, DKA/ICU delirium. This resolved over time and with better management of his glucose/electrolytes. A1c was checked and was 12.3. He was started on long-acting insulin which has been titrated up throughout his stay. He is currently on 20 units of long- acting insulin which is what he will be prescribed at discharge. He will need to follow-up closely with a local primary care doctor and also with nephrology. Recommend that he continues his blood pressure medications including his lisinopril, nifedipine. Coreg 12.5 mg twice daily was added to his home medications at discharge, he did take this medication throughout his hospitalization. His white blood cell count was markedly elevated in the early part of his hospitalization starting 18.7 peaking at 25.6 and then downtrending now to 11.8. He has remained afebrile, no clear source of infection has been identified, he has been on cefepime now for the last 5 days. Will also prescribe empiric antibiotics with 3 more days of cefdinir. Diet: ADA Activity: Ad charles Followup: Bar Zuleta DO [ACTIVE - CAN ADMIT] - 1-2 Weeks NONE,NONE [Primary Care Provider] - 1-2 Weeks Time spent managing pt's care (in minutes): 71
== END 2024-04-06 13:59 | disposition home or self-care (01) | DRG 871 ==
LOC: ER 11:45 → ERHOLD 14:16 → 3RD-ICU 16:21 → 2ND 04-03 13:45
PROVIDERS: ADMIT Internal Medicine; ATTEND Hospitalist
PROC: 4A033R1 Measurement of Arterial Saturation, Peripheral, Percutaneous Approach (ICD-10-PCS; principal; 2024-04-01)
DX: A41.9 Sepsis, unspecified organism (principal); E11.10 Type 2 diabetes mellitus with ketoacidosis without coma; N17.0 Acute kidney failure with tubular necrosis; G93.41 Metabolic encephalopathy; E87.1 Hypo-osmolality and hyponatremia; E87.5 Hyperkalemia; I10 Essential (primary) hypertension; G89.29 Other chronic pain; E86.9 Volume depletion, unspecified; E83.39 Other disorders of phosphorus metabolism; M54.9 Dorsalgia, unspecified; E78.00 Pure hypercholesterolemia, unspecified; E86.0 Dehydration; R25.2 Cramp and spasm; R65.20 Severe sepsis without septic shock; Z91.199 Patient's noncompliance with other medical treatment and regimen due to unspecified reason; Z79.84 Long term (current) use of oral hypoglycemic drugs; Z79.899 Other long term (current) drug therapy
CPT/HCPCS: 36415; 36600; 70450; 74176; 80048; 80053; 80307; 81001; 81003; 82805; 82947; 83036; 83605; 83690; 83735; 84100; 84478; 85025; 85610; 85730; 87040; 93005; 97116; 97161; 99285; J0360; J0692; J0696; J1650; J2270; J2405; J2597; J3360; J7030; J7042; J7050; J7120; J7799